=== PATIENT | male | born 1945 | race Caucasian/White ===

== ENCOUNTER 2020-01-08 11:13 | Outpatient (CLI) | payer OTHER, SELFPAY ==
--- NOTE | ~2020-01-08 | XR_ITS ---
EXAMINATION: XR abdomen/kub 1V INDICATION: Calculus of the kidney, history of right-sided stone TECHNIQUE: Supine views of the abdomen were obtained on 2 radiographs. COMPARISON: CT, 07/17/2019 FINDINGS: At least four presumed stones project in the right kidney which measure up to 4 mm. A 3 mm calcification projects in the right pelvis which may be in the distal right ureter. There are phlebol iths of the pelvis. The bowel gas pattern is normal. Cholecystectomy clips are noted. Also noted is a surgical staple line in the right mid abdomen. IMPRESSION: 1. Possible stone in the distal right ureter. 2. Likely right nephrolithiasis. Reviewed, dictated and finalized at location A.
== END 2020-01-08 11:14 | disposition home or self-care (01) ==
LOC: ANHIMG 11:19
PROVIDERS: PCP Family Medicine; Visit Provider Urology
DX: N20.0 Calculus of kidney (principal)
CPT/HCPCS: 74018

== ENCOUNTER 2020-11-07 15:27 | Outpatient (CLI) | payer MEDICARE, OTHER, SELFPAY ==
--- NOTE | ~2020-11-07 | XR_ITS ---
XR chest 2V DATE: 11/07/2020 15:53 INDICATION: Covid diagnosis, September 2020. Difficulty breathing in supine position. History of COPD. TECHNIQUE: PA and lateral views COMPARISON: 09/02/2018 AP and lateral views FINDINGS: Normal heart size. There is aortic calcification and tortuosity. No hilar or mediastinal en largement. No pulmonary infiltrate or consolidation, pleural effusion or pulmonary vascular congestion or pneumo thorax is evident. Diffuse osteopenia. Degenerative spurring of the thoracic spine. Status post cholecystectomy. IMPRESSION: No active cardiopulmonary disease Aortic atherosclerosis Reviewed, dictated and finalized at location A.
== END 2020-11-07 15:28 | disposition home or self-care (01) ==
PROVIDERS: PCP Family Medicine
DX: U07.1 COVID-19 (principal); R05 Cough; R49.9 Unspecified voice and resonance disorder; J44.9 Chronic obstructive pulmonary disease, unspecified; R06.02 Shortness of breath; I70.0 Atherosclerosis of aorta; Z90.49 Acquired absence of other specified parts of digestive tract; M85.88 Other specified disorders of bone density and structure, other site
CPT/HCPCS: 71046

== ENCOUNTER → 2020-11-09 00:19 | Outpatient (CLI) | payer MEDICARE, OTHER, SELFPAY ==
[2020-11-09 17:04] LABS: SARS-CoV-2 RNA PCR Positive
== END ==
PROVIDERS: PCP Family Medicine; Visit Provider Internal Medicine Critical Care Medicine
DX: Z20.822 Contact with and (suspected) exposure to COVID-19 (principal); U07.1 COVID-19
CPT/HCPCS: C9803; U0003; U0005

== ENCOUNTER → 2020-12-03 01:07 | Outpatient (CLI) | payer MEDICARE, OTHER, SELFPAY ==
[2020-12-03 19:37] LABS: SARS-CoV-2 RNA PCR Negative
== END ==
PROVIDERS: PCP Internal Medicine; Visit Provider Internal Medicine Critical Care Medicine
DX: Z01.812 Encounter for preprocedural laboratory examination (principal); Z20.822 Contact with and (suspected) exposure to COVID-19
CPT/HCPCS: C9803; U0003; U0005

== ENCOUNTER 2020-12-07 16:00 | Outpatient (CLI) | payer MEDICARE, OTHER, SELFPAY ==
--- NOTE | 2020-12-26 09:33 | WPDSLEEPSTUD ---
Sleep Study Date of Study: 12/07/20 Ordering Provider: Ken Singer APRN Interpreting Physician: Candis Alvarado MD Sleep Study Type: BiPAP Titration Height: 1.78 m Weight: 88.451 kg Body Mass Index: 27.9 Neck Circumference (inches): 15 [place]: 12 Reason for Sleep Study CLYDE on treatment since 2005, BiPAP started 2009, now on NPPV settings; increased symptoms; needs retitration * Sleep study : July 18, 2005 for nocturnal polysomnogram and July 19, 2005 for MSLT. The overnight study showed an AHI of 18.2. It was recommended for him to return for a CPAP titration. He had an MSLT nevertheless with a mean sleep latency of 11.4 minutes and to REM onset but this is not valid as he had untreated sleep apnea * CPAP titration on August 27, 2005; no optimal pressure demonstrated; alpha wave intrusion. * BiPAP titration January 24, 2010; 16/11 was the optimal pressure. * Current settings show NPPV device with IPAP 25 cm, EPAP 5 cm; pressure support minimum 2, pressure support maximum 8, Bi-Flex on Smart start off; ramp 20 minutes. Ramp start at 5 cm. Sleep History Aldo Reza is a 75 year old man with a history of sleep apnea dating back to 2005, on BiPAP 16/11 since 2009. He has had a new device since then but is still on the same pressures. His current device is over 5 years old. He is compliant with treatment but is devices old so we have not been able to get compliance data. He wakes up during the middle of the night around 2:30 a.m. or as late as 5:00 a.m. feeling panicked when he cannot breathe. He has to get up and complete his night in the recliner. There is a family history with her mother having sleep apnea. He constantly awakens from sleep feeling short of breath. He frequently awakens at night with heartburn, belching or coughing. He occasionally snores. He does not snore loudly enough that others complain about it while he is using BiPAP. He rarely has trouble sleep with a cold. He constantly wakes up gasping for breath at night. He occasionally has breathing problems at night observed by others. He does not sweat excessively night. He occasionally notices his heart pounding or beating irregularly at night. He constantly falls asleep during the day but never falls asleep involuntarily and never falls asleep while driving. He does not have loss of muscle tone with strong emotion he does not have daytime difficulties due to excessive sleepiness. He feels weak on falling asleep or waking. He frequently has vivid dreamlike scenes upon awakening or falling asleep. He has feelings of anxiety upon falling asleep. He does not have nightmares. He rarely remembers his dreams. He constantly has racing thoughts. He occasionally feels sad or depressed. He constantly has anxiety. He does not have muscular tension. He occasionally notices parts of his body jerking. He does not kick at night. He occasionally has crawling and aching feelings in his legs. He does not have any kind of leg pain at night. He does not have morning jaw pain. He does not grind his teeth during sleep. He rarely is bothered by pain during the day. He has never awakened by pain during the night. He rarely wakes up feeling stiff the morning. He does not wake up with sore achy muscles and does not wake up with pain in the neck and spine. He has fatigue, memory problems, depression, bowel disturbances and he takes antacids regularly. He has constant daytime difficulties due to his excessive sleepiness. Normal bedtime 10:30-11 p.m. falling asleep quickly which he attributes to his sleep aids, Neuro calm supplement and melatonin. He wakes up between 4 and 6 times at night. During these awakenings, he will go to the bathroom a few times and take a sip of water for his very dry mouth. These awakenings occurred 12:30 a.m. 5:00 a.m.. He takes naps in the afternoon or evening. A short nap might be refreshing. He is drowsy in the morning. He feels better in
[2020-12-26 10:02] VITALS: BMI 27.9
== END 2020-12-08 07:15 | disposition home or self-care (01) ==
LOC: ANHCSM 12-12 10:09
PROVIDERS: PCP Internal Medicine; Visit Provider Nurse Practitioner Family
DX: G47.33 Obstructive sleep apnea (adult) (pediatric) (principal)
CPT/HCPCS: 95811

== ENCOUNTER 2021-01-09 10:11 | Outpatient (CLI) | payer MEDICARE, OTHER, SELFPAY ==
--- NOTE | ~2021-01-09 | XR_ITS ---
EXAMINATION: XR abdomen/kub 1V EXAM DATE: 01/09/2021 10:24 INDICATION: Calculus of kidney right flank pain. TECHNIQUE: Frontal projection of the upper abdomen, frontal projection lower abdomen/pelvis for inter pretation. Comparison is made to prior examination from 01/08/2020. FINDINGS: There is bowel gas obscuring both renal contours. Possible small right nephrolithiasis iden tified through this. There are cholecystectomy clips. Nonobstructive bowel gas pattern. There is mild to moderate bilateral hip primary osteoarthritis. IMPRESSION: Possible identification small right nephrolithiasis. Reviewed, dictated and finalized at location A.
== END 2021-01-09 10:12 | disposition home or self-care (01) ==
LOC: ANHIMG 10:15
PROVIDERS: PCP Internal Medicine; Visit Provider Urology
DX: N20.0 Calculus of kidney (principal)
CPT/HCPCS: 74018

== ENCOUNTER 2021-01-11 13:03 | Outpatient (CLI) | payer MEDICARE, OTHER, SELFPAY | END 2021-01-11 13:04 | disposition home or self-care (01) | PROVIDERS: PCP Internal Medicine; Visit Provider Nurse Practitioner Family | DX: E61.1 Iron deficiency (principal) | CPT/HCPCS: 36415; 82728 ==

== ENCOUNTER 2021-03-02 12:26 | Outpatient (CLI) | payer MEDICARE, OTHER, SELFPAY ==
--- NOTE | ~2021-03-02 | MR_ITS ---
EXAMINATION: MR brain/brain stem wo/w con EXAM DATE: 03/02/2021 13:52 INDICATION: R41.82 - Altered mental status, unspecified. Memory loss, head pains, symptoms since COVI D in September. TECHNIQUE: Magnetic resonance imaging (MRI) of the brain/brain stem obtained without contrast. Sagit haider T1, axial diffusion, gradient echo (T2*), T1, T2, FLAIR sequences obtained. Patient was then inj ected with 17 cc intravenous Multihance contrast. Axial and coronal postcontrast T1 weighted sequence s obtained. There is no prior study for comparison. FINDINGS: There are no areas of restricted diffusion to suggest acute infarction. There is no acute hemorrhage seen on the T2*, a hemosiderin sensitive sequence. No intraparenchymal brain mass lesion. There is mild periventricular and subcortical T2/FLAIR signal hyperintensity, nonspecific but probab ly related to small vessel ischemic disease (microangiopathy). There is mild prominence of the sulc i and ventricles related to cerebral atrophy. There are no extra-axial collections. Flow voids are seen in the cerebral arteries on the T2-weighted sequences consistent with their expected patency. Patient has had right-sided ocular lens surgery. Soft tissue is unremarkable. IMPRESSION: 1. No acute intracranial findings. 2. Chronic age related findings. Reviewed, dictated and finalized at location B.
[2021-03-02 13:19] LABS: Estimated Glomerular Filt Rate > 60
== END 2021-03-02 12:27 | disposition home or self-care (01) ==
PROVIDERS: PCP Internal Medicine; Visit Provider Internal Medicine
DX: R41.82 Altered mental status, unspecified (principal)
CPT/HCPCS: 70553; A9577

== ENCOUNTER 2021-08-14 15:56 | Outpatient (CLI) | payer MEDICARE, OTHER, SELFPAY ==
--- NOTE | ~2021-08-14 | XR_ITS ---
EXAMINATION: XR abdomen/kub 1V DATE: 08/14/2021 16:17 INDICATION: Kidney stones. Screening for prostate cancer. TECHNIQUE: A supine view of the abdomen on 2 radiographs was obtained. COMPARISON: 01/09/2021 FINDINGS: Multiple gas-filled but not frankly dilated loops of bowel throughout the abdomen. Suggestion of a fe w small stones at the right kidney however assessment is limited by the superimposed bowel gas patter n. Cholecystectomy clips in right upper quadrant. Mild bilateral hip and sacroiliac osteoarthritis. IMPRESSION: 1. Suggestion of a few small right renal stones however these are superimposed over multiple loops of gas-filled bowel which limits evaluation. 2. Nonspecific bowel gas pattern with large amount of gas scattered throughout nondilated bowel which could represent an ileus. Reviewed, dictated and finalized at location A. L INTERN
== END 2021-08-14 15:57 | disposition home or self-care (01) ==
PROVIDERS: PCP Family Medicine; Visit Provider Urology
DX: Z12.5 Encounter for screening for malignant neoplasm of prostate (principal)
CPT/HCPCS: 74018

== ENCOUNTER 2021-09-28 11:13 | Outpatient (CLI) | payer MEDICARE, OTHER, SELFPAY | END 2021-09-28 11:14 | disposition home or self-care (01) | PROVIDERS: PCP Family Medicine; Visit Provider Physician Assistant | DX: D50.9 Iron deficiency anemia, unspecified (principal) | CPT/HCPCS: 36415; 82728 ==

== ENCOUNTER 2022-01-05 16:45 | Outpatient (CLI) | payer MEDICARE, OTHER, SELFPAY | END 2022-01-05 16:46 | disposition home or self-care (01) | LOC: ANHLAB 16:46 | PROVIDERS: PCP Family Medicine; Visit Provider Physician Assistant | DX: E61.1 Iron deficiency (principal) | CPT/HCPCS: 36415; 82728 ==

== ENCOUNTER 2022-04-02 16:37 | Outpatient (CLI) | payer MEDICARE, OTHER, SELFPAY | END 2022-04-02 16:38 | disposition home or self-care (01) | LOC: ANHLAB 16:39 | PROVIDERS: PCP Family Medicine; Visit Provider Physician Assistant | DX: Z87.19 Personal history of other diseases of the digestive system (principal); Z98.890 Other specified postprocedural states | CPT/HCPCS: 36415; 82728 ==

== ENCOUNTER 2022-07-13 11:07 | Outpatient (CLI) | payer MEDICARE, OTHER, SELFPAY ==
--- NOTE | ~2022-07-13 | XR_ITS ---
EXAMINATION: XR abdomen/kub 1V INDICATION: Screening for prostate cancer, kidney stones TECHNIQUE: Supine views of the abdomen were obtained on 2 radiographs. COMPARISON: 08/14/2021 FINDINGS: Bone alignment is normal. There is mild osteoarthritis of the hips. Surgical clips in the r ight upper quadrant are likely from prior cholecystectomy. Phleboliths are noted in the pelvis. IMPRESSION: 1. Mild osteoarthritis of the hips. Reviewed, dictated and finalized at location B. GATION SUPPORT ANALYST
== END 2022-07-13 11:08 | disposition home or self-care (01) ==
PROVIDERS: PCP Family Medicine; Visit Provider Physician Assistant
DX: D64.9 Anemia, unspecified (principal); Z12.5 Encounter for screening for malignant neoplasm of prostate; M16.0 Bilateral primary osteoarthritis of hip
CPT/HCPCS: 36415; 74018; 82728

== ENCOUNTER 2023-01-11 11:40 | Outpatient (CLI) | payer MEDICARE, OTHER, SELFPAY ==
--- NOTE | ~2023-01-11 | XR_ITS ---
Clinical Indication: COPD PA and lateral views of the chest: Comparison: 11/07/2020 Findings: The lungs are clear, without evidence of focal consolidation or pleural effusion. Cardiome diastinal silhouette is within normal limits. Bones and soft tissues are unremarkable. Impression: Clear lungs. Reviewed, dictated and finalized at location . Impression: Clear lungs.
== END 2023-01-11 11:41 | disposition home or self-care (01) ==
PROVIDERS: PCP Family Medicine; Visit Provider Physician Assistant
DX: J44.9 Chronic obstructive pulmonary disease, unspecified (principal); R06.09 Other forms of dyspnea
CPT/HCPCS: 71046

== ENCOUNTER 2023-12-07 11:45 | Emergency (ER) | payer MEDICARE, OTHER, SELFPAY ==
--- NOTE | ~2023-12-07 | XR_ITS ---
XR chest 2V DATE: 12/07/2023 12:34 INDICATION: Chest pain, rib pain, left upper quadrant abdominal pain TECHNIQUE: AP and lateral views COMPARISON: 01/11/2023 PA and lateral chest FINDINGS: Heart size appears within normal range. There is aortic calcification and mild tortuosity. No hilar or mediastinal enlargement is evident. No pulmonary infiltrate or consolidation, pleural effusion or pulmonary mass or congestion or pneumot horax. Chronic mild elevation of left diaphragm. Osteopenia. Diffuse idiopathic skeletal hyperostosis of the thoracic spine. IMPRESSION: No active disease or significant change since 01/11/2023 Reviewed, dictated and finalized at location A.
[2023-12-07 11:55] VITALS: BP 119/55; PULSE 65; RESP 16; TEMP 36.3; O2SAT 99
[2023-12-07 12:03] VITALS: RESP 18
--- NOTE | 2023-12-07 12:09 | ECG_ITS ---
[facility] [address] Test Date: 2023-12-07 Pat Name: Aldo Reza Department: Room: Gender: M Guard Range: : 1945 Requested By: Figueroa Almazan Order Number: [id number] Cj MD: Frederick Bonds M.D. Measurements Intervals [place] Rate: 54 P: 35 VT: 132 QRS: 47 QRSD: 96 T: 73 QT: 378 QTc: 360 Interpretive Statements SINUS BRADYCARDIA OTHERWISE WITHIN NORMAL LIMITS No previous ECG available for comparison Electronically Signed On 12-08-2023 07:43:48 CDT by Frederick Bonds M.D.
[2023-12-07 12:28] LABS: Basophils Percent Auto 0.8 % (0.2-1.2); Eosinophils Absolute Auto 0.1 K/mm3 (0-0.3); Eosinophils Percent Auto 1.7 % (0-4.4); Hemoglobin 13.2 g/dL (14.0-18.0); Immature Granulocyte Absolute 0.01 K/mm3 (0.00-0.031); Immature Granulocyte Percent A 0.2 % (0-0.5); Lymphocytes Absolute Auto 1.23 K/mm3 (0.9-3.2); Lymphocytes Percent Auto 23.4 % (18.3-44.2); Mean Corpuscular Hemoglobin 31.2 pg (26-34); Mean Corpuscular Volume 94.6 fl (80-100); Mean Platelet Volume 8.9 fl (7.4-10.4); Monocytes Absolute Auto 0.5 K/mm3 (0.1-0.6); Monocytes Percent Auto 10.1 % (2.6-8.5); Neutrophils Absolute Auto 3.4 K/mm3 (1.3-6.7); Neutrophils Percent Auto 63.8 % (45.5-73.1); Platelet Count Result 191 k/mm3 (150-375); Red Blood Count 4.23 M/mm3 (4.6-6.20); Red Cell Distribution Width 13.5 % (11.5-14.5); White Blood Count 5.3 K/mm3 (4.5-10.0)
[2023-12-07 12:38] LABS: Prothrombin Time 13.3 Seconds (11.1-14.7)
[2023-12-07 12:39] LABS: Partial Thromboplastin Time 25.4 Seconds (22.3-36.8)
[2023-12-07 12:40] LABS: Alanine Aminotransferase 78 U/L (6-50); Albumin Level 3.9 g/dL (3.5-5.1); Alkaline Phosphatase 72 U/L (38-126); Anion Gap 0 mmol/L (4-12); Aspartate Amino Transferase 39 U/L (17-59); Bilirubin,Total 1.3 mg/dL (0.2-1.3); Blood Urea Nitrogen 20 mg/dL (9-20); Calcium 9.3 mg/dL (8.4-10.2); Carbon Dioxide 33 mmol/L (22-30); Chloride 104 mmol/L (98-107); Estimated CRCL calculation 68 ml/min; Estimated Glomerular Filt Rate > 60; Glucose 96 mg/dL (65-110); Lipase 94 U/L (23-300); Potassium 4.1 mmol/L (3.4-5.0); Sodium 137 mmol/L (137-145)
--- NOTE | 2023-12-07 13:01 | ED.GENADULT ---
HPI - General Adult General Chief complaint: Unspecified Stated complaint: rib pain Time Seen by Provider: 12/07/23 11:57 History of Present Illness HPI narrative: this is a 78-year-old male with dementia presenting for rib pain. The patient is a poor historian and cannot relay his symptoms very well. His states that he has been having pain over his left costal cartilage at approx rib 6-9. pain has been going on for several months. It happens 3-4 times per week and resolved on its own without intervention. It is not associated with diaphoresis exertion, vomiting, radiation or any other problems. Patient denies any falls. He denies pain at this time. The wants make sure he is not having a heart attack. Related Data Home Medications Medication Instructions Recorded Confirmed aspirin 81 mg chewable tablet 81 mg PO DAILY 06/14/20 08/14/23 ascorbate calcium (vitamin C) 500 500 mg PO DAILY 11/11/20 08/14/23 mg tablet calcium carbonate ([place]) 168 mg PO TID 11/11/20 08/14/23 cholecalciferol (vitamin D3) 10 10 mcg PO DAILY 11/11/20 08/14/23 mcg (400 unit) capsule krill oil 500 mg capsule mg PO 11/11/20 08/14/23 multivitamin 1 tablet PO DAILY 11/11/20 08/14/23 omega-3 fatty acids 500 mg capsule 500 mg PO DAILY 11/11/20 08/14/23 turmeric (bulk) 95 % powder ea miscellaneous 11/11/20 08/14/23 (Curcumin) vitamin K2 45 mcg capsule 45 mcg PO DAILY 11/11/20 08/14/23 zinc acetate 25 mg (zinc) capsule 25 mg PO DAILY 11/11/20 08/14/23 (Galzin) docusate sodium 100 mg capsule 100 mg PO DAILY 02/21/21 08/14/23 (Colace) Allergies Allergy/AdvReac Type Severity Reaction Status Date / Time levofloxacin AdvReac Mild joint pain Verified 08/14/23 11:01 [facility] Past Medical History Medical History Congestive heart failure COPD (chronic obstructive pulmonary disease) Heartburn History of blood clots History of kidney stones Hx of nephrolithotomy with removal of calculi Low ferritin level Nephrolithiasis 13 kidney stones Obstructive sleep apnea Surgical History Surgical History Cataract extraction status H/O inguinal hernia repair LIH History of cholecystectomy History of laparoscopic appendectomy Family History Family History Father Family history of renal failure Family history of heart disease in male family member before age 55 Patient's father is Hypertension Diabetes mellitus Mother Family history of congestive heart failure Patient's mother is Hypertension Sibling Hypertension Family history of Alzheimer's disease Family history of emphysema Patient's brother is Grandparent Asthma Other Family history of cardiovascular disease Social History Social History Smoking status: Never smoker Alcohol intake: never Living arrangements: with family Occupation/Education: retired Exam Narrative: APPEARANCE: No apparent distress. Head: atraumatic. EYES: EOMI, NOSE: Atraumatic NECK: Trachea midline RESPIRATORY: No increased rate of breathing , clear to auscultation CARDIOVASCULAR: RRR, pitting edema lower extremities which is chronic per the patient's ABDOMINAL: Non-distended soft nontender MUSCULOSKELETAl: No obvious deformities no tenderness appreciated over the anterior chest and abdomen NEURO: Alert. Moving 4/4 extremities SKIN:: Warm, dry. Normal color PSYCHIATRIC: Normal affect Course Vital Signs Vital signs: Vital Signs Temperature 97.4 F L 12/07/23 11:55 Pulse Rate 65 12/07/23 11:55 Respiratory Rate 16 12/07/23 11:55 Blood Pressure 119/55 L 12/07/23 11:55 Pulse Oximetry 99 12/07/23 11:55 Temperature 97.4 F L 12/07/23 11:55 Pulse Rate 59 L
[2023-12-07 13:06] LABS: Troponin I < 0.012 ng/mL (0.000-0.034)
[2023-12-07 13:35] VITALS: BP 112/58; PULSE 60; RESP 16; O2SAT 97
[2023-12-07 14:44] VITALS: BP 133/76; PULSE 59; O2SAT 100
--- NOTE | 2023-12-07 15:00 | ECG_ITS ---
[facility] [address] Test Date: 2023-12-07 Pat Name: Aldo Reza Department: Room: Gender: Ripshear Operator: : 1945 Requested By: Figueroa Almazan Order Number: [id number] Cj MD: Frederick Bonds M.D. Measurements Intervals [place] Rate: 62 P: 59 NM: 148 QRS: 56 QRSD: 92 T: 79 QT: 359 QTc: 367 Interpretive Statements SINUS RHYTHM WITHIN NORMAL LIMITS Compared to ECG 12/07/2023 12:15:14 NO SIGNIFICANT CHANGE Electronically Signed On 12-08-2023 07:46:30 CDT by Frederick Bonds M.D.
[2023-12-07 15:54] LABS: Troponin I < 0.012 ng/mL (0.000-0.034)
[2023-12-07 16:36] VITALS: BP 125/78; PULSE 60; RESP 18; O2SAT 97
== END 2023-12-07 16:37 | disposition home or self-care (01) ==
PROVIDERS: Emergency Provider Emergency Medicine; PCP Family Medicine
DX: R07.81 Pleurodynia (principal); I50.9 Heart failure, unspecified; J44.9 Chronic obstructive pulmonary disease, unspecified; Z86.718 Personal history of other venous thrombosis and embolism; Z87.442 Personal history of urinary calculi; G47.30 Sleep apnea, unspecified
CPT/HCPCS: 36415; 71046; 80053; 83690; 84484; 85025; 85610; 85730; 93005; 99284

== ENCOUNTER 2024-10-15 15:40 | Outpatient (CLI) | payer MEDICARE, OTHER, SELFPAY ==
--- NOTE | ~2024-10-15 | CT_ITS ---
Non-contrast CT scan of the Abdomen and Pelvis Clinical indication: Left flank pain Technique: 2.5 mm axial scans were obtained through the abdomen and pelvis without intravenous or or al contrast. Dose reduction technique was used on this scan by utilizing automated exposure control a nd iterative reconstruction technique. The dose-length product (DLP) was 318.84 mGy-cm. Findings: Images through the lung bases reveal no abnormalities. Multiple small nonobstructing right renal stones are present. No definite left renal stone. No ureter al stone or definite hydronephrosis on either side. Questionable micronodular contour of liver. The spleen, pancreas, and adrenals appear normal. Cholecy stectomy clips are present. There are atherosclerotic calcifications of the aorta. . There is no evidence of bowel obstruction. Images through the pelvis were performed. There is no evidence of ascites or lymphadenopathy. Urinary bladder unremarkable. Prostate gland is enlarged. Impression: Nonobstructing right nephrolithiasis. No ureteral stone or hydronephrosis on either side. Enlarged prostate gland. Questionable mild cirrhotic change of the liver. Reviewed, dictated and finalized at location . Impression: Nonobstructing right nephrolithiasis. No ureteral stone or hydronephrosis on ei ther side. Enlarged prostate gland. Questionable mild cirrhotic change of the liver.
--- OUTSIDE RECORDS SUMMARY | 2024-10-15 15:45 | XMS_ITS | Clinical Summary ---
Author Organization [facility] Address [address] [place] [address] Phone Care Team Providers Care Refrigerated Cargo Clerk Name Role Phone Unavailable Primary Care Provider Unavailabl e Social History Tobacco Use Types Packs/Day Years Used Date Smoking Tobacco: Never Assessed Sex and Gender Information Value Date Recorded Sex Assigned at Not on file Legal Sex Male 10:08 PM CDT Gender Identity Not on file Sexual Orientation Not on file Plan of Treatment Not on file
--- OUTSIDE RECORDS SUMMARY | 2024-10-15 15:45 | XMS_ITS | Encounter Summary ---
Author Organization [facility] Facility Care Team Providers Care Wafer Fabrication Technician Name Role Phone Eren Bojorquez MD Primary Care Provider [phone] Yovana GarciaW Unavailable [phone] Nani Colin RN Unavailable [phone] Encounter Details Date Type Department Care Team (Latest Contact Info) Description 07/30/2018 Orders Only [facility] CLINCONV ProviderRicardo MD [address] [place] [id number] Social History Tobacco Use Types Packs/Day Years Used Date Smoking Tobacco: Never Smokeless Tobacco: Never Alcohol Use Standard Drinks/Week Comments No 0 (1 standard drink = 0.6 oz pur e alcohol) Sex and Gender Information Value Date Recorded Sex Assigned at Not on file Legal Sex Male 1:27 PM JANITORIAL MANAGER Gender Identity Not on file Sexual Orientation Not on file documented as of this encounter Plan of Treatment Not on file documented as of this encounter Procedures Procedure Name Priority Date/Time Associated Diagnosis Comments PROCEDURE - RESULT 07/30/2018 12 :00 AM JANITORIAL MANAGER documented in this encounter Results * PROCEDURE - RESULT (07/30/2018 12:00 AM JANITORIAL MANAGER) Narrative 07/30/2018 12:00 AM JANITORIAL MANAGER Ordered by an unspecified provider. Historical Provider Final Res ult documented in this encounter Visit Diagnoses Not on filedocumented in this encounter Additional Health Concerns Infection Onset Date Last Indicated Resolved Time COVID: Suspected 09/16/2024 09/16/2024 09/16/2024 11:06 AM CDT documented as of this encounter Care Teams Wafer Fabrication Technician Relationship Specialty Start Date End Date Eren Bojorquez MD PCP - General Family Medicine 12/17/18 Yovana Garcia, MIREYA [address] [place] [address] System Operation Superintendent 02/13/24 02/20/24 Nani Colin RN [address] [place] [address] [place], [place] [address], [place] [address] Director Government 02/13/24 07/06/24 documented as of this encounter
--- OUTSIDE RECORDS SUMMARY | 2024-10-15 15:45 | XMS_ITS | Encounter Summary ---
Author Organization [facility] Facility Care Team Providers Care Funeral Car Driver Name Role Phone Eren Bojorquez MD Primary Care Provider [phone] Yovana GarciaW Unavailable [phone] Nani Colin RN Unavailable [phone] Encounter Details Date Type Department Care Team (Latest Contact Info) Description 09/02/2018 Orders Only [facility] CLINCONV ProviderRicardo MD [address] [place] [address] Social History Tobacco Use Types Packs/Day Years Used Date Smoking Tobacco: Never Smokeless Tobacco: Never Alcohol Use Standard Drinks/Week Comments No 0 (1 standard drink = 0.6 oz pur e alcohol) Sex and Gender Information Value Date Recorded Sex Assigned at Not on file Legal Sex Male 1:27 PM LICENSED MASS REAL ESTATE APPRAISER Gender Identity Not on file Sexual Orientation Not on file documented as of this encounter Plan of Treatment Not on file documented as of this encounter Procedures Procedure Name Priority Date/Time Associated Diagnosis Comments SCAN - LABS 09/03/2018 12:00 AM LICENSED MASS REAL ESTATE APPRAISER documented in this encounter Results * SCAN - LABS (09/03/2018 12:00 AM LICENSED MASS REAL ESTATE APPRAISER) Narrative 09/03/2018 12:00 AM LICENSED MASS REAL ESTATE APPRAISER Ordered by an unspecified provider. Historical Provider Final Res ult documented in this encounter Visit Diagnoses Not on filedocumented in this encounter Additional Health Concerns Infection Onset Date Last Indicated Resolved Time COVID: Suspected 09/16/2024 09/16/2024 09/16/2024 11:06 AM CDT documented as of this encounter Care Teams Funeral Car Driver Relationship Specialty Start Date End Date Eren Bojorquez MD PCP - General Family Medicine 12/17/18 Yovana Garcia, MIREYA [address] [place] [address] Vp Corporate Development 02/13/24 02/20/24 Nani Colin RN [address] [place] [address] [place], [place] [address] [address] Robotics Specialist 02/13/24 07/06/24 documented as of this encounter
--- OUTSIDE RECORDS SUMMARY | 2024-10-15 15:45 | XMS_ITS | Clinical Summary ---
Author Organization [facility] [address] Address [address] [place] [address] Care Team Providers Care Acetone Recovery Worker Name Role Phone Eren Bojorquez MD Primary Care Provider [phone] Allergies Active Allergy Reactions Criticality Noted Date Comments Levofloxacin Joint pain Low Medications oregano oil 1,500 mg capsule 1,500 mg. 0 0 02/02/20 15 Active turmeric, bulk, (CURCUMIN) 95 % powder 95 %. 0 0 02/02/20 15 Active aspirin 81 mg tablet Take 1 tablet (81 mg total) by mouth daily Active ascorbic acid (VITAMIN C) 100 mg tablet Rx: Vitamin C Ac tive [id number] pa-dpa-fish oil 1,050-1,200 mg capsule Rx: Lanexa 3 Active multivit with min-folic acid 200 mcg tablet,chewab le Rx: Multivitamin Adult - Tablet Active magnesium oxide 200 mg magnesium tablet,chewab le Rx: Magnesium Active docusate sodium (COLACE) 100 mg capsuleIndica tions:constip ation Take 1 capsule (100 mg total) by mouth 2 (two) times a day Active cholecalcifer ol (VITAMIN D-3) 5,000 unit capsule Take 1 capsule (5,000 Units total) by mouth daily Active albuterol 2.5 mg /3 mL (0.083 %) nebulizer solution Active albuterol HFA (PROVENTIL HFA,VENTOLIN HFA,PROAIR HFA) 90 mcg/actuation inhaler Active hydroCHLOROth iazide (MICROZIDE) 12.5 mg capsule Take 1 capsule (12.5 mg total) by mouth daily 90 capsule 3 01/16/20 24 Active meloxicam (MOBIC) 7.5 mg tabletIndicat ions:Localize d swelling on left hand Take 1 tablet (7.5 mg total) by mouth daily for 15 days 15 tablet 09/17/19 25 Active traZODone (DESYREL) 50 mg tablet TAKE ONE TO ONE AND ONE-HALF TABLETS BY MOUTH AT BEDTIME NEEDED FOR INSOMNIA 135 tablet 1 09/18/19 25 Active traZODone (DESYREL) 50 mg tablet TAKE ONE TO ONE AND ONE-HALF TABLETS BY MOUTH AT BEDTIME NEEDED FOR INSOMNIA 135 tablet 1 03/11/20 24 025 Discontinued carbidopa-lev odopa (SINEMET) 25-100 mg per tabletIndicat ions:Parkinso nism Take 2 tablets by mouth 3 (three) times a day Start with a very slow titration of 1/2 tablet three times per day for 2 weeks, then increase by 1/2 tab at each dose every 2 weeks until taking 2 tabs TID. 180 tablet 11 04/13/20 24 025 Discontinued(T herapy completed) gabapentin (NEURONTIN) 100 mg capsule Take 1 capsule (100 mg total) by mouth nightly 30 capsule 08/12/19 25 025 Discontinued(T herapy completed) azithromycin (ZITHROMAX) 250 mg tabletIndicat ions:Acute cough Take 2 tabs (500 mg) by mouth today, than 1 tab (250 mg) daily for 4 days. 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 Advised can stop if s/e. Parkinson's disease without dyskinesia or fluctuating manifestations 01/08/2024 Assessment & Plan (08/12/2024 12:09 PM LATCHER): Not at goal Encourage to schedule follow up with movement clinic Strongly encourage to start on Sinemet as prescribed Assessment & Plan (04/13/2024 1:10 PM CDT): He had stage 3 parkinsonism characterized by relatively symmetric bradykinesia, a history of resting tremor (not seen on exam today and infrequent per report), mild rigidity, postural instability as well as, hypophonia, hypomimia and cognitive impairment with visual hallucinations within the first 2 - 3 years of diagnosis and early falling. 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 He had no eye movement abnormalities or autonomic symptoms. He was most bothered right now by motor symptoms of bradykinesia and rigidity, mobility. He and his family report that they are less bothered by visual hallucinations which have been mild thus far though suspected tactile hallucination of needing to have a bowel movement were more bothersome to his day-to-day. He has recently begun quetiapine 12.5 mg and now titrated to 25 mg nightly. In past week perhaps no hallucinations though AM grogginess today at higher dose last night. He is on trazodone 25 mg nightly and if AM grogginess persist then he can stop this rather than waiting a week as previously planned. As hallucinations are not bothersome they wonder if they should continue quetiapine. We discussed continue current dosing while monitoring VH and suspected tactile hallucinations as well as mobility and updating us in 1 week. No need to continue to titrate further if non-bothersome or if experiencing side effects. Should he continue to feel groggy in AM or think mobility worse at higher dosing, then we can reduce back to 12.5 mg nightly and remain off trazodone (had been used for sleep) as sleep has been good and quetiapine beneficial for VH. In future, could alternatively consider pimavanserin. His MDS-UPDRS is worse today than before, will need to monitor this closely at next visit and by history with patient update if this is related to quetiapine use or not. We discussed starting carbidopa/levodopa for his motor symptoms. We discussed that carbidopa/levodopa may make sedation and hallucinations worse. I would start with a very slow titration of 1/2 tablet TID x 2 weeks and increase by 1/2 tab at each dose every 2 weeks until taking 2 tabs TID. A prescription has been placed locally but they will consider and discuss as a family and let us know should he decide to pursue this. NPT today demonstrated cognitive impairment on MOCA and MMSE and by history he has dementia as he has now begun forgetting how to get dressed or toilet at times and unable to do so independently. B12 and TSH recently checked and wnkl (B12 1853 and TSH 1.81). Recommendations: Update us in 1 week regarding hallucinations and sensations of needing a bowel movement - can continue quetiapine 25 mg nightly and no need to increase further if hallucinations are improved - we may consider reducing this in the future if hallucinations remain stable and he is bothered by sedation or AM grogginess despite stopping trazodone, or worsening mobility in timeframe of starting quetiapine Recommended cautious trial of carbidopa-levodopa 1/2 tab TID with titration by 1/2 tab each dose every 2 weeks until reaching 2 tabs TID while closely monitoring psychosis and for additional side effects - they will consider and discuss as a family Increase water intake and if needed trial OTC miralax for constipation Continue PT and OT - new referrals placed for local use Can trial exercises classes on [employer] channel as tolerated NPT today Follow-up in 4 months Assessment & Plan (02/11/2024 12:46 PM CDT): Progressive, worsening Continue working with PT/OT Home health and ACO referrals Keep f/u with [facility] clinic Assessment & Plan (01/08/2024 11:52 AM CDT): He had stage 3 parkinsonism characterized by relatively symmetric bradykinesia, a history of resting tremor (not seen on exam today), mild rigidity, postural instability as well as, hypophonia, hypomimia and cognitive impairment with visual hallucinations within the first 2 - 3 years of diagnosis and early falling. 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 He had no eye movement abnormalities or autonomic symptoms. He was most bothered right now by a likely tactile hallucination of wanting to have a bowel movement as well as severe slowness of movement and cognitive impairment. We decided to start with a quetiapine titration that will start when they return from a cruise on February 04. Should he do well with it he may discontinue trazodone. He will see our RECRE[facility] C[facility] DIRECTOR in 3 months and at that time will consider starting carbidopa/levodopa. We discussed that carbidopa/levodopa may make sedation and hallucinations worse. I would start with a very slow titration of 1/2 tablet TID x 2 weeks and increase by 1/2 tab at each dose every 2 weeks until taking 2 tabs TID. He would benefit from PT but may not have the ability to remember what he has learned. He needs an NPT and video on his return visit. He had a normal B12 and TSH at the onset of his illness. We could check these again I let them know that the supplements he was taking were not necessary in Parkinson disease. He sees a signal maintainer helper who is attempting some heavy metal chelation though I do not have labs that show he has high heavy metals. Lewy body dementia with behavioral disturbance 0 01/08/2024 Assessment & Plan (02/11/2024 12:46 PM CDT): Progressive, worsening Continue working with PT/OT Home health and ACO referrals Keep f/u with [facility] clinic Weakness 09/09/2023 Assessment & Plan (02/11/2024 12:46 PM CDT): Progressive, worsening Continue working with PT/OT Home health and ACO referrals Keep f/u with [facility] clinic Assessment & Plan (11/07/2023 12:19 PM CDT): Progressive Denies much decline since seen in August Discussed possible starting on Aricept or Namenda to help. would like to discuss with family first. Discussed memory and tremor may be related to dementia or coule potentially be Parkinsonism tremor. Hard to determine since not present during visit. Discussed starting on medications for Parkinsons but would prefer to wait until seen by neurology Referral to neurology Assessment & Plan (09/09/2023 11:39 AM CDT): Worsening, progressive PT/OT referral to [facility] in [place] Advise to maintain independence and continue moving to prevent further loss. Can use OTC Tylenol or Tylenol arthritis BID for hip pain which may help with sleep and mobility Dystrophia unguium 02/27/2023 Non-recurrent unilateral ing uinal hernia without obstruction or gangrene 11/29/2021 Memory loss 08/09/2021 Assessment & Plan (11/07/2023 12:21 PM CDT): Progressive Denies much decline since seen in August Forgot grandsons name Discussed possible starting on Aricept or Namenda to help. would like to discuss with family first. Discussed memory and tremor may be related to dementia or coule potentially be Parkinsonism tremor. Hard to determine since not present during visit. Discussed starting on medications for Parkinsons but would prefer to wait until seen by neurology Referral to neurology Assessment & Plan (09/09/2023 11:38 AM CDT): Worsening, progressive Discussed 's concerns. Advised could give 1 tab of trazodone during upcoming trip if needed. Redirect. Maintain independence for as long as possible. High protein meals, push fluids. Mixed hyperlipidemia 02/04/2019 Assessment & Plan (08/12/2024 12:08 PM LATCHER): Stable Lab Results Component Value Date CHOL 222 (H) 03/25/2024 CHOL 252 (H) 08/09/2021 CHOL 228 (H) 11/30/2019 POCCHOL 234 02/27/2018 Lab Results Component Value Date HDL 70 03/25/2024 HDL 75 08/09/2021 HDL 76 11/30/2019 POCHDL 70 02/27/2018 Lab Results Component Value Date LDLCALC 156 (H) 08/09/2021 LDL 138 (H) 03/25/2024 LDL 138 (H) 11/30/2019 LDL 142 (H) 12/17/2018 POCLDL 155 02/27/2018 SCRLDL 139 (A) 11/11/2020 Lab Results Component Value Date TRIG 57 03/25/2024 TRIG 107 08/09/2021 TRIG 45 11/30/2019 POCTRIG 48 02/27/2018 Lab Results Component Value Date POCCHDLR 3.4 02/27/2018 Lab Results Component Value Date POCNONHDL 165 02/27/2018 Repeat labs prior to next visit Diet managed Assessment & Plan (02/11/2024 12:45 PM CDT): Stable Lab Results Component Value Date CHOL 252 (H) 08/09/2021 CHOL 228 (H) 11/30/2019 CHOL 234 (H) 12/17/2018 POCCHOL 234 02/27/2018 Lab Results Component Value Date HDL 75 08/09/2021 HDL 76 11/30/2019 HDL 77 12/17/2018 POCHDL 70 02/27/2018 Lab Results Component Value Date LDLCALC 156 (H) 08/09/2021 LDL 138 (H) 11/30/2019 LDL 142 (H) 12/17/2018 LDL 151 (H) 12/06/2017 POCLDL 155 02/27/2018 SCRLDL 139 (A) 11/11/2020 Lab Results Component Value Date TRIG 107 08/09/2021 TRIG 45 11/30/2019 TRIG 56 12/17/2018 POCTRIG 48 02/27/2018 Lab Results Component Value Date POCCHDLR 3.4 02/27/2018 Lab Results Component Value Date POCNONHDL 165 02/27/2018 Lab Results Component Value Date POCCHLPL 234 02/27/2018 Check labs Idiopathic esophageal varices without bleeding 0 02/04/2019 Mucocele of appendix 01/14/2019 Chronic fatigue 12/05/2017 Assessment & Plan (02/11/2024 12:45 PM CDT): Progressive worsening Decrease trazodone and taper off while starting Seroquel Discussed possible s/e with pt and Check labs Continue PT/OT services Home health and ACO referrals Assessment & Plan (11/07/2023 12:21 PM CDT): Worsened Having more waking periods at night. Up frequently to bathroom Has had family coming to help during the nights. Currently taking 50mg trazodone with some relief. 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 Grider 01/2016 Obstructive sleep apnea syndrome 02/01/2015 Overview (10/04/2016): CLYDE on CPAP Cardiomyopathy 02/01/2015 Assessment & Plan (02/11/2024 12:44 PM CDT): Chronic Keep appt with palm gatherer on 05/21/24 Continue ASA 81mg, HCTZ 12.5mg Labs ordered Chronic diastolic heart failure 02/01/2015 Assessment & Plan (08/12/2024 12:08 PM LATCHER): Stable edema, asymptomatic otherwise Continue HCTZ 12.5mg daily Continue compression socks Check labs prior to next visit Edema 02/01/2015 Overview (10/05/2016): Edema Chronic obstructive pulmonary disease 02/01/2015 Overview (10/05/2016): COPD (chronic obstructive pulmonary disease) Pulmonary hypertension 02/01/2015 Overview (10/05/2016): Pulmonary HTN Slow transit constipation Resolved Problems Problem Noted Date Diagnosed Date Resolved Date Ingrowing toenail 03/28/2023 09/16/2024 Abdominal pain, LUQ 11/29/2021 02/11/20 24 Paronychia of toe of right foot 05/15/2021 09/16/2024 Pain in toe 12/29/2020 09/16/2024 Acute left-sided low back pa in without sciatica 06/09/2020 08/12/2024 H/O hernia repair 01/14/2019 09/16/2024 Kidney stones 01/14/2019 09/16/2024 Cataract 07/30/2018 09/16/2024 Adiposity 02/01/2015 01/14/2019 Overview (10/05/2016): Obesity Dyspnea on exertion 02/01/2015 01/15/20 19 Overview (10/05/2016): ROBBINS (dyspnea on exertion) Encounters Date Type Department Care Team Description 09/16/2024 10:30 AM CDT Office Visit [facility] at [address] [place] [phone] Arabella España PA Acute cough (Primary Dx); Localized swelling on left hand 08/12/2024 11:30 AM LATCHER Telemedicine [facility] at [address] [place] [address] Jacquelyn Rodriguez NP 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) (Primary Dx); Parkinson's disease without dyskinesia or fluctuating manifestations (HCC); Chronic diastolic heart failure (HCC); Encounter for hepatitis C screening test for low risk patient; Need for hepatitis B screening test; Mixed hyperlipidemia; Neuropathy 08/03/2024 11:15 AM LATCHER Office Visit [facility] [address] [place] [address] Frederick Bonds MD Dilated cardiomyopathy (HCC) (Primary Dx) from Last 3 Months Immunizations Immunization Administration Dates Next Due Influenza, Trivalent, High D ose, Split, Preservative Free, Intramuscular 04/09/2019 Influenza, Unspecified 08/12/2024(Deferr ed: Patient Refused),09/09/2023(Deferred: Patient Refused),03/31/2022,08/09/2021(Deferre d: Patient Refused),07/01/2021(Deferred: Patient Refused),07/01/2020(Deferred: Patient Refused),07/01/2020(Deferred: Patient Refused) Pneumococcal Conjugate PCV 13 06/16/2015 Pneumococcal Polysaccharide PPV23 07/16/2012 ZOSTER LIVE 07/16/2012 ZOSTER Recombinant 06/28/2020,04/14/2020 Surgical History Surgery Date Site/Laterality Comments HERNIA REPAIR 07/01/1999 - 06/30/2000 CHOLECYSTECTOMY 07/01/2013 - 06/30/2014 APPENDECTOMY CATARACT EXTRACTION 07/01/2018 - 06/30/2019 SKIN CANCER EXCISION 10/20/2022 Right 09/2023 removal from nose Medical History Medical History Date Comments COPD (chronic obstructive pulmonary disease) (HC C) Sleep apnea Kidney stones x13 History of hernia repair Diastolic dysfunction Non-ischemic cardiomyopathy (HCC) Lewy body dementia (HCC) 2023 Family History Medical History Relation Name Comments Alzheimer's disease Brother 2 Alzheime r's disease; Kidney disease Father Renal disease ; Heart failure Mother Congestive hea rt failure; Heart failure Sister 1 Congestive hea rt failure; COPD Sister 2 COPD; Relation Name Status Comments Brother 1 (Age 75) Brother 2 Father (Age 85) Mother (Age 84) Sister 1 Sister 2 Social History Tobacco Use Types Packs/Day Years Used Date Smoking Tobacco: Never Smokeless Tobacco: Never Tobacco Cessation:Counseling Given: Not Answered Alcohol Use Standard Drinks/Week Comments No 0 (1 standard drink = 0.6 oz pur e alcohol) [facility] Utilities Answer Date Recorded In the past 12 months has [employer] electric, gas, oil, or water [employer] threatened to shut off services in your home? No 02/21/2024 Social Connection and Isolat ion Panel [NHANES] Answer Date Recorded In a typical week, how many times do you talk on the phone with family, friends, or neighbors? Twice a week 02/21/2024 How often do you get togethe r with friends or relatives? More than three times a week 02/21/2024 How often do you attend [facility] or yarsani services? More than 4 times per year 02/21/2024 Do you belong to any clubs o r organizations such as quaker groups, unions, fraternal or athletic groups, or school groups? No 02/21/2024 How often do you attend meet ings of the clubs or organizations you belong to? Never 02/21/2024 Are you , , di vorced, , never , or living with a partner? 02/21/2024 AUDIT-C Answer Date Recorded Q1: How often do you have a drink containing alcohol? Never 08/12/2024 Q2: How many drinks containi ng alcohol do you have on a typical day when you are drinking? Patient does not drink Q3: How often do you have si x or more drinks on one occasion? Never 08/12/2024 Overall Financial Resource Strain (CARDIA) Answe r Date Recorded How hard is it for you to pa y for the very basics like food, housing, medical care, and heating? Not hard at all 02/21/2024 PHQ-2 Answer Date Recorded PHQ-2 Total Score (If total score is 3 or more points, staff should administer the PHQ-9) 0 09/16/2024 Hunger Vital Sign Answer Date Recorded Within the past 12 months, y ou worried that your food would run out before you got the money to buy more. Never true 02/21/20 24 Within the past 12 months, t he food you bought just didn't last and you didn't have money to get more. Never true 02/21/2024 PRAPARE - Transportation Answer Date Re corded In the past 12 months, has l ack of transportation kept you from medical appointments or from getting medications? No 01/30 In the past 12 months, has l ack of transportation kept you from meetings, work, or from getting things needed for daily living? No 02/21/2024 PHQ-9 Answer Date Recorded PHQ-9 Total Score 8 02/11/2024 Housing Stability Vital Sign Answer Nikolas e Recorded In the last 12 months, was t here a time when you were not able to pay the mortgage or rent on time? No 02/21/2024 In the past 12 months, how m any times have you moved where you were living? 0 02/21/2024 At any time in the past 12 m [facility], were you homeless or living in a alf (including now)? No 02/21/2024 Sex and Gender Information Value Date Recorded Sex Assigned at Not on file Legal Sex Male 1:27 PM LATCHER Gender Identity Not on file Sexual Orientation Not on file Obstetrics History Last Filed Vital Signs Vital Sign Reading Time Taken Comments Blood Pressure 114/66 09/16/2024 10:41 AM CDT Pulse 59 09/16/2024 10:41 AM CDT Temperature 36.8 C (98.3 F) 09/16/2024 10:41 AM CDT Respiratory Rate 18 09/16/2024 10:41 AM CDT Oxygen Saturation 96% 09/16/2024 10:41 AM CDT Inhaled Oxygen Concentration - - Weight 78.1 kg (172 lb 3.2 oz) 09/16/2024 10:41 AM CDT Height 180.3 cm (5' 11 ) 09/16/2024 10:41 AM CDT Body Mass Index 24.02 09/16/2024 10:41 AM CDT Plan of Treatment Health Maintenance Due Date Last Done Comments Hepatitis C Screening 1945 Hepatitis B Screening 1963 DTaP/Tdap/Td Vaccine (1 - Tdap) 11/30/2024 Postponed from 01/02/1956 (Patient declined, but will receive in the future) Fall Risk Assessment 02/10/2025 02/11/2024, 09/09/2023, 11/29/2021, Additional history exists Well Visit 65+ 02/10/2025 02/11/2024, 03/2022, 01/14/2019 Influenza Vaccine (Season Ended) 2025 03/31/2022, 04/09/2019 Depression Screening 09/16/2025 09/16/2024, 04/13/2024, 02/11/2024, Additional history exists Pneumococcal vaccine 65+ Completed 06/16/2015, 07/01 Zoster Vaccine Completed 06/28/2020, 03/31, 07/16/2012 Goals Goal Patient Goal Type Associated Problems Recent Progress Patient-Stated? Author ACO SW Goal - Level of ADL/IADL assistance will meet patient's needs ACO Care Management On track(2023 11:01 AM CDT) Yovana Ortiz, MANAGER PHILOSOPHY Note: Problem: Inadequate assistance to manage ADL's/IADL's Interventions: - Assess current level of functioning and needs with patient/family. - Assess appropriateness for Home Health. Contact PCP office to start referral process if skilled need is present. - Provide information regarding insurance coverage of specific resources. - Provide patient/family with resources for their specific need. - Identify/assist in obtaining available community resources. - Assess need for higher level of care or SNF/ECF placement. Coordinate placement if appropriate. Procedures Procedure Name Priority Date/Time Associated Diagnosis Comments POC INFLUENZA A/B, COVID-19 ANTIGEN Routine 09/16/2024 11:05 AM CDT Acute cough from Last 3 Months Results * POC Influenza A/B, COVID-19 antigen (09/16/2024 11:05 AM CDT) Influenza A Ag, POC Negative Negative [facility] Influenza B Ag, POC Negative Negative [facility] COVID-19 Ag POC Presumptive Negative Presumptive Negative, Invalid [facility] Nasal 09/16/2024 11:0 5 AM CDT us Arabella Escalante POINT OF CARE TEST ORDER RAMOS Final Result [facility] [address] [facility] [facility] [address] [place] [address], [facility] from Last 3 Months Insurance MEDICARE [facility] [place] MEDICARE [place] [employer] [employer] [place] MEDICARE [place] [employer] [employer] [place] Care Teams Acetone Recovery Worker Relationship Specialty Start Date End Date Eren Bojorquez MD PCP - General Family Medicine 12/17/18
--- OUTSIDE RECORDS SUMMARY | 2024-10-15 15:45 | XMS_ITS | Referral Summary ---
Author Organization [facility] [address] [place] [address] [address] [place] [address] Care Team Providers Care Collector Of Internal Revenue Name Role Phone Eren Bojorquez MD Primary Care Provider [phone] Encounters Date Type Department Care Team Description 09/16/2024 10:30 AM CDT Office Visit [facility] Family Medicine at [address] [place] [address] Arabella España PA Acute cough (Primary Dx); Localized swelling on left hand 08/12/2024 11:30 AM HAND LEATHER TRIMMER Telemedicine [facility] Family Medicine at [address] [place] [address] Jacquelyn Rodriguez NP 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) (Primary Dx); Parkinson's disease without dyskinesia or fluctuating manifestations (HCC); Chronic diastolic heart failure (HCC); Encounter for hepatitis C screening test for low risk patient; Need for hepatitis B screening test; Mixed hyperlipidemia; Neuropathy 08/03/2024 11:15 AM HAND LEATHER TRIMMER Office Visit [facility] Medical [facility] Cardiology [address] [facility] [address] [place] [address] Frederick Bonds MD Dilated cardiomyopathy (HCC) (Primary Dx) from Last 3 Months Allergies Active Allergy Reactions Criticality Noted Date [...] mg tablet Rx: Vitamin C Ac tive [id number]-[id number] pa-dpa-fish oil 1,050-1,200 mg capsule Rx: [place] 3 Active multivit with min-folic acid 200 [...] 08/12/2024 Assessment & Plan (08/12/2024 12:09 PM HAND LEATHER TRIMMER): Slow progression Continue trazodone 50mg HS to help with sleep No elopement or behavior concerns at this time Neuropathy 08/12/2024 Assessment & Plan (08/12/2024 12:10 PM HAND LEATHER TRIMMER): Not at goal Possibly worsened by Parkinson's and swelling Discussed with pt and possible side effects especially given dementia Start on low dose at bed time to help with neuropathy that prevents restful sleep. Advised can stop if s/e. Parkinson's disease without dyskinesia or fluctuating manifestations 01/08/2024 Assessment & Plan (08/12/2024 12:09 PM HAND LEATHER TRIMMER): Not at goal Encourage to schedule follow [...] use Can trial exercises classes on APDA YouTube channel as tolerated NPT today Follow-up in 4 months Assessment & Plan (02/11/2024 12:46 PM CDT): Progressive, worsening Continue working with PT/OT Home health and ACO referrals Keep f/u with [facility] clinic Assessment & Plan (01/08/2024 11:52 [...] may discontinue trazodone. He will see our PARAKEET RAISER in 3 months and at that time [...] necessary in Parkinson disease. He sees a associate brand manager who is attempting some heavy metal chelation though I do not have labs that show he has high heavy metals. Lewy body dementia with behavioral disturbance 0 01/08/2024 Assessment & Plan (02/11/2024 12:46 PM CDT): Progressive, worsening Continue working with PT/OT Home health and ACO referrals Keep f/u with [facility] clinic Weakness 09/09/2023 Assessment & Plan (02/11/2024 12:46 PM CDT): Progressive, worsening Continue working with PT/OT Home health and ACO referrals Keep f/u with [facility] clinic Assessment & Plan (11/07/2023 12:19 [...] Worsening, progressive PT/OT referral to [facility] in [place] Advise to maintain independence and continue moving [...] 02/04/2019 Assessment & Plan (08/12/2024 12:08 PM HAND LEATHER TRIMMER): Stable Lab Results Component Value Date CHOL [...] 12:44 PM CDT): Chronic Keep appt with automatic head sawyer on 05/21/24 Continue ASA 81mg, HCTZ 12.5mg Labs ordered Chronic diastolic heart failure 02/01/2015 Assessment & Plan (08/12/2024 12:08 PM HAND LEATHER TRIMMER): Stable edema, asymptomatic otherwise Continue HCTZ 12.5mg [...] 19 Overview (10/05/2016): ROBBINS (dyspnea on exertion) Immunizations Immunization Administration Dates Next Due Influenza, Trivalent, High D ose, Split, Preservative Free, Intramuscular 04/09/2019 Influenza, Unspecified 08/12/2024(Deferr ed: Patient Refused),09/09/2023(Deferred: Patient Refused),03/31/2022,08/09/2021(Deferre d: Patient Refused),07/01/2021(Deferred: Patient Refused),07/01/2020(Deferred: Patient Refused),07/01/2020(Deferred: Patient Refused) Pneumococcal Conjugate PCV 13 06/16/2015 Pneumococcal Polysaccharide PPV23 07/16/2012 ZOSTER LIVE 07/16/2012 ZOSTER Recombinant 06/28/2020,04/14/2020 Social History Tobacco Use Types Packs/Day Years Used Date Smoking Tobacco: Never Smokeless Tobacco: Never Tobacco Cessation:Counseling Given: Not Answered Alcohol Use Standard Drinks/Week Comments No 0 (1 standard drink = 0.6 oz pur e alcohol) [facility] Utilities Answer Date Recorded In the past 12 months has th e [email or web address], gas, oil, or water [employer] threatened to shut off services in your [...] week 02/21/2024 How often do you attend chur ch or adventist services? More than 4 times per year 02/21/2024 Do you belong to any clubs o r organizations such as protestant groups, unions, fraternal or athletic groups, or [...] any time in the past 12 m [facility], were you homeless or living in a [place] facility (including now)? No 02/21/2024 Sex and Gender Information Value Date Recorded Sex Assigned at Not on file Legal Sex Male 1:27 PM HAND LEATHER TRIMMER Gender Identity Not on file Sexual Orientation Not on file Last Filed Vital Signs Vital Sign Reading [...] 09/16/2024 10:41 AM CDT Plan of Treatment Not on file Goals Goal Patient Goal Type Associated Problems Recent Progress Patient-Stated? Author ACO SW Goal - Level of ADL/IADL assistance will meet patient's needs ACO Care Management On track(2023 11:01 AM CDT) No Yovana Garcia, PAPER CAP MACHINE OPERATOR Note: Problem: Inadequate assistance to manage ADL's/IADL's [...] CDT) Influenza A Ag, POC Negative Negative [facility] Influenza B Ag, POC Negative Negative [facility] COVID-19 Ag POC Presumptive Negative Presumptive Negative, Invalid [facility] Nasal 09/16/2024 11:0 5 AM CDT Arabella Escalante POINT OF CARE TEST ORDER RAMOS Final Result [facility] [address] [facility] [address] [place] [address], [facility] from Last 3 Months Insurance MEDICARE [facility] MEDICARE [place] [facility] [place] [address] Care Teams Collector Of Internal Revenue Relationship Specialty Start Date End Date Eren Bojorquez MD PCP - General Family Medicine 12/17/18
--- OUTSIDE RECORDS SUMMARY | 2024-10-15 15:45 | XMS_ITS | Encounter Summary ---
Author Organization [facility] Care Team Providers Care Commercial Lending Assistant Name Role Phone Eren Bojorquez MD Primary Care Provider [phone] Yovana GarciaW Unavailable Nani Colin RN Unavailable [phone] Encounter Details Date Type Department Care Team (Latest Contact Info) Description 06/25/2017 Orders Only [facility] ProviderRicardo MD [address] [place] [address] Social History Tobacco Use Types Packs/Day Years Used Date Smoking Tobacco: Never Alcohol Use Standard Drinks/Week Comments No 0 (1 standard drink = 0.6 oz pur e alcohol) Sex and Gender Information Value Date Recorded Sex Assigned at Not on file Legal Sex Male 1:27 PM PLANT SAFETY ENGINEER Gender Identity Not on file Sexual Orientation Not on file documented as of this encounter Plan of Treatment Not on file documented as of this encounter Procedures Procedure Name Priority Date/Time Associated Diagnosis Comments COLONOSCOPY - SCAN 06/25/2017 12 :00 AM PLANT SAFETY ENGINEER documented in this encounter Results * COLONOSCOPY - SCAN (06/25/2017 12:00 AM PLANT SAFETY ENGINEER) Narrative 06/25/2017 12:00 AM PLANT SAFETY ENGINEER Ordered by an unspecified provider. Historical Provider Final Res ult documented in this encounter Visit Diagnoses Not on filedocumented in this encounter Additional Health Concerns Infection Onset Date Last Indicated Resolved Time COVID: Suspected 09/16/2024 09/16/2024 09/16/2024 11:06 AM CDT documented as of this encounter Care Teams Commercial Lending Assistant Relationship Specialty Start Date End Date Eren Bojorquez MD PCP - General Family Medicine 12/17/18 Yovana Garcia, FINISHER MACHINE [address] [place] [address] Trapper Bird 02/13/24 02/20/24 Nani Colin RN [address] [place], [place] [id number] Fireperson 02/13/24 07/06/24 documented as of this encounter
--- OUTSIDE RECORDS SUMMARY | 2024-10-15 15:45 | XMS_ITS | CONTINUITY OF CARE DOCUMENT ---
Author Name [email or web address] Address Unknown Organization [facility] Address [address] [place] [address] Phone [phone] Care Team Providers Care Stock Pitcher Name Role Phone Jerel FOLEY, Saul Unavailable [phone] PATY CONTEH MD Unavailable PATY CONTEH MD Unavailable INSURANCE PROVIDERS Payer name Policy type / Coverage type Hellier red libertarian [employer] Other
--- OUTSIDE RECORDS SUMMARY | 2024-10-15 15:45 | XMS_ITS | Data Portability ---
Author Organization [facility], Main Office Address [address] [place] [address] Care Team Providers Care Welder Plasma Arc Name Role Phone PATY LAU Primary Care Provider Unavailabl PATY Meek Referring Provider Unavailable Assessment Encounter Date Assessment Date Assessment LastModified by Organization Details LastModified Time 03/28/2023 03/28/2023 This note is dictated and transcribed by [employer]. Truck Shop Supervisor variances may occur. Despite proofreading, typographical errors may occur. [email or web address] Not available 04/01/2023 08:52:10 Plan of Treatment Reminders Order Date Submit Date Provider Last Modified By Organization Details Last Modified Time Details Appointments None record ed. Lab None record ed. Referral None record ed. Procedures None record ed. Surgeries None record ed. Imaging None record ed. Medication Orders None record ed. Patient TargetsNo targets recorded. Patient Instructions Encounter Date Encounter Id Patient Instructions Last Modified By Organization Details Last Modified Time 03/28/2023 [id number] paronychia: care instructions [email or web address] Not available 04/01/2023 08:52:32 Reason for Referral None Reported. Problems Name Problem SNOMED Code Status Onset Date Resolution Date Notes Provider Name and Address Organization Details Recorded Time Paronychia of toe of right foot 8792242931297 9102 Active 2020 Not Available [facility] 3 23:09:53 Pain in toe 362511464 Active 2020 Not Available [facility] 3 23:09:53 Dystrophia unguium 26353319 Active 2022 Callum Grove DPM [address] [facility] [address] [facility] [facility] [address], [place], [address] , [facility] [employer] 3 15:41:16 Ingrowing toenail 445040031 Active 2022 Callum Grove DPM [address] [facility] [facility], [place], [address] , [employer] [facility] 17:17:43 Notes:COPD, PROSTATE ISSUES Problem Notes None recorded. Procedures Surgical History Date Name Laterality Status Provider Name and Address Organization Details Recorded Time 03/28/20 Nail Debridement completed Callum Grove DPM [address], [address], [place], [address], [employer] [facility] 03/28/2023 17:17:36 02/19/20 Nail Debridement completed Callum Grove DPM [address], [address], [place], [address], [employer] 02/18/2023 14:50:05 cholecystectomy completed Not Available [employer] 08/29/2022 23:06:40 Imaging Results None recorded. Procedure Notes None recorded. Medical Equipment None Reported. Allergies Allergen ID Allergen Name Allergen Category Reaction Reaction Severity Criticality Documentation Date Start Date Code Code System Note Provider Name and Address Organization Details Recorded Time 07616 Levaquin medicatio n Not available Not available Not available 08/29/2022 86617 2 RxNorm Not Available [facility] 23:13:15 Medications Name Sig Start Date Stop Date Status Note LastModified by Organization Details LastModified Time ivermectin 3 mg tablet TAKE 6 TABLETS (18MG TOTAL) BY MOUTH EVERY DAY X 5 DAYS 02/27 completed Not Available Not Available Not Available albuterol sulfate 2.5 mg/3 mL (0.083 %) solution for nebulizatio n PLEASE SEE ATTACHED FOR DETAILED DIRECTION S active Not Available Not Available No t Available trazodone 50 mg tablet TAKE ONE-HALF TABLET BY MOUTH EVERY DAY AT BEDTIME NEEDED FOR SLEEP active Not Available Not Available No t Available cephalexin 500 mg capsule TAKE ONE CAPSULE BY MOUTH TWO TIMES A DAY FOR SEVEN DAYS 02/27 completed Not Available Not Available Not Available ferrous sulfate 325 mg (65 mg iron) tablet TAKE 1 TABLET BY MOUTH DAILY FOR 30 DAYS active Not Available Not Available No t Available hydrochloro thiazide 12.5 mg capsule TAKE 1 CAPSULE BY MOUTH EVERY DAY active Not Available Not Available No t Available budesonide 0.5 mg/2 mL suspension for nebulizatio n INHALE 0.5 MG (2 ML) BY INHALATIO N TWICE DAILY - RINSE AND SPIT AFTER EACH USE active Not Available Not Available No t Available hydroxychlo roquine 200 mg tablet TAKE 2 TABLETS BY MOUTH ONCE WEEKLY FOR 8 WEEKS 12/29 completed Not Available Not Available Not Available methylpredn isolone 4 mg tablets in a dose pack TAKE 6 TABLETS ON DAY 1 DIRECTED ON PACKAGE AND DECREASE BY 1 TAB EACH DAY FOR A TOTAL OF 6 DAYS 12/29 completed Not Available Not Available Not Available hydrocodone 10 mg-chlorphe niramine 8 mg/5 mL oral susp extend.rel 12hr TAKE 5 MILLILITE RS BY MOUTH EVERY 12 (TWELVE) HOURS NEEDED FOR COUGH active Not Available Not Available No t Available albuterol sulfate HFA 90 mcg/actuati on aerosol inhaler INHALE 1 - 2 PUFFS BY MOUTH EVERY 4 - 6 HOURS NEEDED FOR SHORTNESS OF BREATH OR WHEEZING active Not Available Not Available No t Available diazepam 5 mg tablet active Not Available Not Available No t Available eszopiclone 2 mg tablet TAKE 1 TABLET BY MOUTH ONCE, TAKE WITH YOU TO SLEEP CENTER 12/29 completed Not Available Not Available Not Available fluocinolon e acetonide oil 0.01 % ear drops PLEASE SEE ATTACHED FOR DETAILED DIRECTION S active Not Available Not Available No t Available ID NOW COVID-19 Test Kit TEST DIRECTED TODAY active Not Available Not Available No t Available Paxlovid 300 mg (150 mg x 2)-100 mg tablets in a dose pack active Not Available Not Available Not Available Vitals Date Recorded Body height Heart rate Systolic blood pressure Diastolic blood pressure Provider Name and Address Organization Details Last Updated DateTime 10/19/2021 177.8 cm 70 /min 121 mm[Hg] 70 mm[Hg] Not Available [facility] 08/29/2022 23:08:34 Date Recorded Body height Provider Name an d Address Organization Details Last Updated DateTime 10/26/2021 177.8 cm Not Available [facility] 23:08:34 Date Recorded Body height Oxygen saturation Oxygen saturation in Arterial blood by Pulse oximetry Heart rate Systolic blood pressure Diastolic blood pressure Provider Name and Address Organization Details Last Updated DateTime 2 177.8 cm 95 % 95 % 74 /min 112 mm[Hg] 68 mm[Hg] Not Available [facility] 3 23:08:34 Date Recorded Heart rate Respiratory rate Oxygen saturation Oxygen saturation in Arterial blood by Pulse oximetry Systolic blood pressure Diastolic blood pressure Provider Name and Address Organization Details Last Updated DateTime 3 58 /min 14 /min 97 % 97 % 119 mm[Hg] 71 mm[Hg] Gisselle Baird [place] [employer] [facility] 3 12:14:20 Date Recorded Heart rate Respiratory rate Oxygen saturation Oxygen saturation in Arterial blood by Pulse oximetry Systolic blood pressure Diastolic blood pressure Provider Name and Address Organization Details Last Updated DateTime 3 69 /min 14 /min 97 % 97 % 118 mm[Hg] 65 mm[Hg] Gisselle Baird [facility] [employer] [facility] 3 17:04:37 Social History Question Answer Notes LastModified by Organizat ion Details LastModified Time Tobacco Smoking Status Never Smoker Not Available [facility] 08/29/2022 23:06:01 What Is Your Level Of Alcohol Consumption? None [id number] Information not available 08/29/2022 Sex: Unknown Functional Status None recorded. Mental Status None recorded. Family History Nothing Reported. Medical History No medical history recorded. Past Encounters Encounter ID Performer Location Encounter Start Date Encounter Closed Date Diagnosis/Indication Diagnosis SNOMED-CT Code Diagnosis ICD10 Code Diagnosis Note [id number] [facility] [address] [place] [address], [address] [address] 12/29/2020 00:00:00 12/29/2020 13:46:04 [id number] [facility] [address] [place] [address], [address] [address] 05/16/2021 00:00:00 05/16/2021 13:09:48 [id number] [facility] [address] [place] [address], [address] [address] 10/19/2021 00:00:00 10/19/2021 14:44:42 [id number] [facility] [address] [facility], [address] [address] 10/26/2021 00:00:00 10/26/2021 14:10:43 [id number] [facility] [address], [address] [place] [address] 01/18/2022 00:00:00 01/18/2022 15:09:15 [id number] Callum Grove DPM [facility] Podiatry Sean [place] [address] [place] [address] 02/18/2023 12:07:45 02/27/2023 17:01:48 Dystrophia unguium 21308308 L60.3 Nails 1 through 10 were debrided with sharp mechanical debridemen t without incident. Nails were debrided and greater than 50% length and thickness where needed. Unable to cut own toenails 019912751 Z74.1 [id number] Callum Grove DPM [facility] Podiatry Sean Luna [address] [address] [address] [place] [address] 03/28/2023 16:52:15 04/02/2023 10:29:21 Pain in toe 381731098 M79.674 as above Ingrowing toenail 884643 009 L60.0 right great toenail, lateral borderSlan t back performed affected nail cornerprov veronica daily wound care until healedreco mmend topical antibiotic ointment Band-AidPa tient is to soak in warm Epsom salt soaks math for approximat morgan 20 min daily for 5-7 days until infection has resolved. Patient is to dress the wound daily with topical antibiotic ointment and Band-Aid. Patient to monitor for signs of infection, if worsens seek medical attention at the nearest ER.follow- up 1 week if not resolved Health Concerns Section Related Observation LastModified by Organization Detai ls LastModified Time None Recorded Concern Status LastModified by Organization Details LastModified Time None Recorded Advance Directives Directive None Recorded Payers Encounter Date Sequence Insurance Name Policy Number Policy Jean Covered Member ID Jean Member ID Guarantor Name 02/18/2023 1 [place] Aldo Reza [id number] Aldo Reza 02/18/2023 2 [employer] (MEDICARE SUPPLEMENT) PLAN G Aldo Reza [id number] Aldo Reza 03/28/2023 1 [place] Aldo Reza [id number] Aldo Reza 03/28/2023 2 [employer] (MEDICARE SUPPLEMENT) PLAN G Aldo Reza [id number] Aldo Reza Notes Date Note Type Note Provider Name and Address Organization Details Recorded Time 02/18/2023 text/html . Patient is a 78-year-old male who returns the office for routine foot care. Patient denies any pain with weight-bearing. Patient denies any history of wounds. Patient states the nails have become long and they are tender. Patient would like to have them cut as he has difficulty cutting them. Patient denies any other complaints. Callum Grove DPM [address] [employer], [place], [address], [employer] 02/27/2023 15:43:52 03/28/2023 text/html . Patient is a 78-year-old male who presents to the office with complaints of redness and pain to his right great toenail. Patient states he has had some drainage and pain with pressure and walking. Patient denies any fever, chills, nausea vomiting. Patient states he has been dealing with this for a few days and states it has not improved. Patient denies any other complaints. Callum Grove DPM [address], [employer], [place], [address], [employer] 04/01/2023 08:53:20
== END 2024-10-15 15:41 | disposition home or self-care (01) ==
PROVIDERS: PCP Family Medicine; Visit Provider Nurse Practitioner Family
DX: N20.0 Calculus of kidney (principal); N40.0 Benign prostatic hyperplasia without lower urinary tract symptoms
CPT/HCPCS: 74176

== ENCOUNTER 2025-01-24 22:53 | Emergency (ER) | payer MEDICARE, OTHER, SELFPAY ==
--- NOTE | ~2025-01-24 | XR_ITS ---
XR chest 1V 01/24/2025 23:24 Indication: Coughing episode Procedure: AP view the chest Comparison: Comparison to multiple prior studies sequentially, with oldest reviewed study dated 10/2018. Findings: Heart size normal. Bibasilar atelectasis. No focal pneumonia, edema or effusion. No acute o sseous abnormality. Shallow inspiration with crowding of the pulmonary vasculature. Impression: 1: Bibasilar atelectasis. Reviewed, dictated and finalized at location B. Impression: 1: Bibasilar atelectasis.
[2025-01-24 22:56] VITALS: BP 109/63; PULSE 52; RESP 17; TEMP 36.8; O2SAT 97
--- NOTE | 2025-01-24 23:00 | ECG_ITS ---
Test Date: 2025-01-24 23:01:51 Measurements Intervals Evans Rate: 66 P: 43 NE: 143 QRS: 35 QRSD: 94 T: 61 QT: 364 QTc: 382 Interpretive Statements SINUS RHYTHM No previous ECG available for comparison Electronically Signed On 01-25-2025 12:39:24 CDT by Sammy Bartholomew M.D.
[2025-01-24 23:14] VITALS: RESP 17; O2SAT 97
[2025-01-24 23:20] LABS: Hematocrit 39.3 % (42.0-52.0); Hemoglobin 12.9 g/dL (14.0-18.0); Immature Granulocyte Percent A 0.2 % (0-0.5); Lymphocytes Absolute Auto 1.41 K/mm3 (0.9-3.2); Mean Corpuscular HGB Conc 32.8 g/dl (32-36); Mean Corpuscular Hemoglobin 30.4 pg (26-34); Mean Corpuscular Volume 92.5 fl (80-100); Nucleated Red Blood Cells Absolute Auto 0.000 K/mm3 (0.0-0.012); Nucleated Red Blood Cells Perc 0.0 % (0.0-0.2); Platelet Count Result 192 k/mm3 (150-375); Red Blood Count 4.25 M/mm3 (4.6-6.20); White Blood Count 5.2 K/mm3 (4.5-10.0)
--- OUTSIDE RECORDS SUMMARY | 2025-01-24 23:37 | XMS_ITS | Encounter Summary ---
Author Organization [facility] Facility Care Team Providers Care Hull Line Crew Member Name Role Phone Eren Bojorquez MD Primary Care Provider [phone] Yovana GarciaW Unavailable [phone] Nani Colin RN Unavailable [phone] Encounter Details Date Type Department Care Team (Latest Contact Info) Description 06/25/2017 Orders Only [facility] CLINCONV ProviderRicardo MD [address] [place] [id number] Social History Tobacco Use Types Packs/Day Years Used Date Smoking Tobacco: Never Alcohol Use Standard Drinks/Week Comments No 0 (1 standard drink = 0.6 oz pur e alcohol) Sex and Gender Information Value Date Recorded Sex Assigned at Not on file Legal Sex Male 1:27 PM WRITER PRODUCER Gender Identity Not on file Sexual Orientation Not on file documented as of this encounter Plan of Treatment Not on file documented as of this encounter Procedures Procedure Name Priority Date/Time Associated Diagnosis Comments COLONOSCOPY - SCAN 06/25/2017 12 :00 AM WRITER PRODUCER documented in this encounter Results * COLONOSCOPY - SCAN (06/25/2017 12:00 AM WRITER PRODUCER) Narrative 06/25/2017 12:00 AM WRITER PRODUCER Ordered by an unspecified provider. Historical Provider Final Res ult documented in this encounter Visit Diagnoses Not on filedocumented in this encounter Additional Health Concerns Infection Onset Date Last Indicated Resolved Time COVID: Suspected 09/16/2024 09/16/2024 09/16/2024 11:06 AM CDT documented as of this encounter Care Teams Hull Line Crew Member Relationship Specialty Start Date End Date Eren Bojorquez MD PCP - General Family Medicine 12/17/18 Yovana Garcia, SOFTWARE BUSINESS ANALYST [address] [place] [address] Heel Wheeler 02/13/24 02/20/24 Nani Colin RN [address] [place], [place] [id number] Bread Wrapper Operator 02/13/24 07/06/24 documented as of this encounter
--- OUTSIDE RECORDS SUMMARY | 2025-01-24 23:37 | XMS_ITS | Clinical Summary ---
Author Organization [facility] [address] Address [address] [place] [address] Care Team Providers Care Launch Check Out Name Role Phone Eren Bojorquez MD Primary Care Provider [phone] Allergies Active Allergy Reactions Criticality Noted Date Comments Levofloxacin Joint pain Low Medications oregano oil 1,500 mg capsule 1,500 mg. 0 0 02/02/20 15 Active turmeric, bulk, (CURCUMIN) 95 % powder 95 %. 0 0 02/02/20 15 Active aspirin 81 mg tabletIndications:C erebral Thromboembolism Prevention Take 1 tablet by mouth daily Active ascorbic acid (VITAMIN C) 100 mg tabletIndications:V itamin C Deficiency Rx: Vitamin C Active hjusf-[id number]-epa-dpa -fish oil 1,050-1,200 mg capsuleIndications: hypertriglyceridemi a Rx: [place] 3 Active multivit with min-folic acid 200 mcg tablet,chewableIndi cations:Vitamin Deficiency Prevention Rx: Multivitamin Adult - Tablet Active magnesium oxide 200 mg magnesium tablet,chewableIndi cations:hypomagnese ashley Rx: Magnesium Active docusate sodium (COLACE) 100 mg capsuleIndications: constipation Take 1 capsule (100 mg total) by mouth 2 (two) times a day Active cholecalciferol (VITAMIN D-3) 5,000 unit capsuleIndications: Vitamin D Deficiency Take 1 capsule by mouth daily Active albuterol 2.5 mg /3 mL (0.083 %) nebulizer solution A ctive albuterol HFA (PROVENTIL HFA,VENTOLIN HFA,PROAIR HFA) 90 mcg/actuation inhaler Active hydroCHLOROthiazide (MICROZIDE) 12.5 mg capsuleIndications: hypertension Take 1 capsule (12.5 mg total) by mouth daily 90 capsule 3 01/16/20 24 Active traZODone (DESYREL) 50 mg tabletIndications:i nsomnia associated with depression TAKE ONE TO ONE AND ONE-HALF TABLETS BY MOUTH AT BEDTIME NEEDED FOR INSOMNIA 135 tablet 1 09/18/19 25 Active Active Problems Problem Noted Date Diagnosed Date 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 Advised can stop if s/e. Parkinson's disease without dyskinesia or fluctuating manifestations 01/08/2024 Assessment & Plan (12/21/2024 1:02 PM CDT): Mr. Reza was doing ok overall. He had no recent falls. He continued to have swelling in his right hand and some pain. He also had urinary urgency and frequency. He did have a urologist that he follow up with. He tried levodopa for 2 weeks and felt restless and his sleep was worse. He was on trazodone with benefit, He completed in home PT/OT/ST this past Saturday. Recommendations Increase water intake to at least 64 oz of water a day Continue to follow up with HCP as recommended and as needed PCP manages the trazodone Fall precaution Follow up in 6 months Assessment & Plan (08/12/2024 12:09 PM REFERENCE DATA EXPERT): Not at goal Encourage to schedule follow [...] local use Can trial exercises classes on [employer] channel as tolerated NPT today Follow-up in 4 months Assessment & Plan (02/11/2024 12:46 PM CDT): Progressive, worsening Continue working with PT/OT Home health and ACO referrals Keep f/u with [facility] clinic Assessment & Plan (01/08/2024 11:52 [...] may discontinue trazodone. He will see our TERRITORY MANAGER GENERAL SALES in 3 months and at that time [...] necessary in Parkinson disease. He sees a landscape gardener who is attempting some heavy metal chelation though I do not have labs that show he has high heavy metals. Lewy body dementia with behavioral disturbance 0 01/08/2024 Assessment & Plan (02/11/2024 12:46 PM CDT): Progressive, worsening Continue working with PT/OT Home health and ACO referrals Keep f/u with [facility] clinic Weakness 09/09/2023 Assessment & Plan (02/11/2024 12:46 PM CDT): Progressive, worsening Continue working with PT/OT Home health and ACO referrals Keep f/u with [facility] clinic Assessment & Plan (11/07/2023 12:19 [...] AM CDT): Worsening, progressive PT/OT referral to M in [place] Advise to maintain independence and continue moving [...] 02/04/2019 Assessment & Plan (08/12/2024 12:08 PM REFERENCE DATA EXPERT): Stable Lab Results Component Value Date CHOL [...] 12:44 PM CDT): Chronic Keep appt with vp patient on 05/21/24 Continue ASA 81mg, HCTZ 12.5mg Labs ordered Chronic diastolic heart failure 02/01/2015 Assessment & Plan (08/12/2024 12:08 PM REFERENCE DATA EXPERT): Stable edema, asymptomatic otherwise Continue HCTZ 12.5mg daily Continue compression socks Check labs prior to next visit Edema 02/01/2015 Overview (10/05/2016): Edema Chronic obstructive pulmonary disease 02/01/2015 Overview (10/05/2016): COPD (chronic obstructive pulmonary disease) Pulmonary hypertension 02/01/2015 Overview (10/05/2016): Pulmonary HTN Slow transit constipation Resolved Problems Problem Noted Date Diagnosed Date Resolved Date Ingrowing toenail 03/28/2023 09/16/2024 Abdominal pain, LUQ 11/29/2021 02/11/20 Paronychia of toe of right foot 05/15/2021 09/16/2024 Pain in toe 12/29/2020 09/16/2024 Acute left-sided low back pa in without sciatica 06/09/2020 08/12/2024 H/O hernia repair 01/14/2019 09/16/2024 Kidney stones 01/14/2019 09/16/2024 Cataract 07/30/2018 09/16/2024 Adiposity 02/01/2015 01/14/2019 Overview (10/05/2016): Obesity Dyspnea on exertion 02/01/2015 01/15/20 19 Overview (10/05/2016): ROBBINS (dyspnea on exertion) Encounters Date Type Department Care Team Description 12/30/[address] [facility] Family Medicine at [address] [place] [address] Eren Bojorquez MD 12/21/2024 11:30 AM CDT Office Visit [facility] Movement Disorders [address] [place] [address] 7[address] [place] [address] Irma Ni, NHI Lewy body dementia with behavioral disturbance (HCC) (Primary Dx); Parkinson's disease without dyskinesia or fluctuating manifestations (HCC) 12/17/2024 2:00 PM CDT Home Care Visit [address] [place] [address] Yeimy Rodriguez, OT OT OASIS DISCHARGE 12/15/2024 3:00 PM CDT Home Care Visit [address] [place] [address] Ayesha Avila, TURN SEWER TURN SEWER DISCIPLINE DISCHARGE 12/15/2024 2:30 PM CDT Home Care Visit [address] [place] [address] Yeimy Rodrgiuez, OT OT HOME VISIT 12/14/2024 1:00 PM CDT Home Care Visit [address] [place] [address] Ayesha West, PT PT REASSESSMENT 12/14/2024 Home Care Visit [address] [place] [address] Ayesha West, PT PT DISCIPLINE DISCHARGE 12/11/2024 2:00 PM CDT Home Care Visit [address] [place] [address] Ayesha West, PT PT HOME VISIT 12/10/2024 2:00 PM CDT Home Care Visit [address] [place] [address] Yeimy Rodriguez, OT OT HOME VISIT 12/08/2024 2:30 PM CDT Home Care Visit [address] [place] [address] Yeimy Rodriguez, OT OT HOME VISIT 12/07/2024 1:00 PM CDT Home Care Visit [address] [place] [address] [place] Ayesha ruiz SLP TURN SEWER HOME VISIT 12/04/2024 3:30 PM CDT Home Care Visit [address] [place] [address] Nani Allen, LITHOGRAPHIC GENERAL WORKER PT HOME VISIT 12/03/2024 2:00 PM CDT Home Care Visit [address] [place] [address] Yeimy Rodriguez, OT OT REASSESSMENT 12/02/2024 2:00 PM CDT Home Care Visit [address] [place] [address] Hernandez[place]-Ackl inAyesha, TURN SEWER TURN SEWER REASSESSMENT 12/01/2024 2:00 PM CDT Home Care Visit [address] [place] [address] Yeimy Rodriguez, OT OT HOME VISIT 11/30/2024 2:00 PM CDT Home Care Visit [address] [place] [address] Hernandez[place]-Ackl inAyesha SLP TURN SEWER HOME VISIT 11/27/2024 3:00 PM CDT Home Care Visit [address] [place] [address] Nani Allen, KALPANA PT HOME VISIT 11/26/2024 2:00 PM CDT Home Care Visit [address] [place] [address] HernandezlandOliAckl inAyesha, TURN SEWER TURN SEWER HOME VISIT 11/25/[address] [facility] [address] [address] Gina Orozco, TERRITORY MANAGER GENERAL SALES 11/25/[address] [facility] Family Medicine at [address] [place] [address] Eren Bojorquez MD After Hours 11/24/2024 2:00 PM CDT Home Care Visit [address] [place] [address] [address] [place] [address] Ayesha Avila SLP TURN SEWER HOME VISIT 11/20/2024 3:45 PM CDT Home Care Visit [address] [address] [place] [address] Autumn Young COTA OT HOME VISIT 11/20/2024 9:00 AM CDT Home Care Visit [address] [address] [place] [address] Ayesha West, PT PT REASSESSMENT 11/19/2024 3:00 PM CDT Home Care Visit [address] [place] [address] [place] [address] Autumn Young COTA OT HOME VISIT 11/19/2024 Results Follow-Up [facility] Family Medicine at [address] [place] [address] Arabella España PA XR Hand Left 3+ Vw 11/18/2024 3:00 PM CDT Home Care Visit [address] [place] [address] [place] [address] Nani Allen, LITHOGRAPHIC GENERAL WORKER PT HOME VISIT 11/17/2024 12:45 PM CDT Home Care Visit [address] [place] [address] Ayesha Avila SLP TURN SEWER HOME VISIT 11/16/2024 1:59 PM CDT - 11/16/2024 11:59 PM CDT Hospital Encounter [facility] [address] [place] [address] Left hand pain Discharge Disposition: Discharge to home or self care 11/16/2024 1:15 PM CDT Office Visit [facility] Family Medicine at [address] [place] [address] Arabella España PA Left hand pain (Primary Dx) 11/12/2024 12:15 PM CDT Home Care Visit [address] [place] [address] Ayesha Avila, TURN SEWER TURN SEWER HOME VISIT 11/11/2024 2:00 PM CDT Home Care Visit [address] [place] [address] Yeimy Rodriguez, OT OT REASSESSMENT 11/11/2024 2:00 PM CDT Home Care Visit [address] [place] [address] Nani Allen, KALPANA PT HOME VISIT 11/10/2024 4:00 PM CDT Home Care Visit [address] [place] [address] Ayesha Avila, TURN SEWER TURN SEWER HOME VISIT 11/09/2024 9:30 AM CDT Home Care Visit [address] [place] [address] Yeimy Rodriguez, OT OT HOME VISIT 11/06/2024 3:00 PM CDT Home Care Visit [address] [place] [address] Nani Allen, KALPANA PT HOME VISIT 11/05/2024 9:30 AM CDT Home Care Visit [address] [place] [address] Yeimy Rodriguez, OT OT HOME VISIT 11/04/2024 1:00 PM CDT Home Care Visit [address] [place] [address] Ayesha Avila, TURN SEWER TURN SEWER INITIAL EVALUATION 11/04/[address] [facility] Family Medicine at [address] [place] [address] Eren Bojorquez MD contiued therapy 11/03/2024 Home Care Visit [address] [place] [address] Ayesha West, PT CARE CONFERENCE 11/02/2024 10:30 AM CDT Home Care Visit [address] [place] [address] Yeimy Rodriguez, OT OT INITIAL EVALUATION 11/02/2024 9:00 AM CDT Home Care Visit [address] [place] [address] [place] [address] Ayesha West, PT PT HOME VISIT 10/30/2024 Home Care Visit [address] [place] [address] Margo Gay, RN NURSE MED RECON FOR THERAPY 10/29/2024 Home Care Visit [address] [place] [address] Margo Gay, RN NURSE MED RECON FOR THERAPY 10/28/2024 Home Care Visit [address] [place] [address] Yeimy Rodriguez, OT CASE COMMUNICATION 10/28/2024 Home Care Visit [address] [place] [address] Margo Gay, RN NURSE MED RECON FOR THERAPY 10/27/2024 10:00 AM CDT Home Care Visit [address] [place] [address] Ayesha West, PT PT OASIS START OF CARE 10/27/2024 Plan of Care Documentation [address] [place] [address] 10/26/2024 Home Care Visit [address] [place] [address] Margo Gay, RN TELEPHONE ENCOUNTER 10/26/[address] [facility] Family Medicine at [address] [place] [address] Eren Bojorquez MD Medical Question/Miscellaneou s from Last 3 Months Immunizations Immunization Administration [...] Medical History Date Comments COPD (chronic obstructive pu lmonary disease) (HCC) Sleep apnea Kidney stones x13 History of hernia repair Diastolic dysfunction Non-ischemic cardiomyopathy (HCC) Lewy body dementia (HCC) 2023 Cataract surgery 2018 Sleep apnea, obstructive Migraine Most of life until a pprox 10 years ago Family History Medical History Relation Name Comments Alzheimer's disease Brother 2 Dontae Reza Alzheime r's disease; Kidney disease Father Papa Reza Renal disease ; Heart failure Mother Congestive hea rt failure; Heart failure Sister 1 Congestive hea rt failure; COPD Sister 2 Asaf Ruiz COPD; Relation Name Status Comments Brother 1 (Age 75) Brother 2 Dontae Reza Father Papa Reza (Age 85) Mother (Age 84) Sister 1 Sister 2 Asaf Ruiz Social History Tobacco Use Types Packs/Day Years Used Date Smoking Tobacco: Never Smokeless Tobacco: Never Tobacco Cessation:Counseling Given: Not Answered Alcohol Use Standard Drinks/Week Comments No 0 (1 standard drink = 0.6 oz pur e alcohol) OASIS D0700: Social Isolation Answer Da te Recorded Frequency of experiencing loneliness or isolatio n Never 12/17/2024 OASIS A1250: Transportation Answer Date Recorded Lack of Transportation (Medical) No 12/17/2024 Lack of Transportation (Non-Medical) No 12/17/2024 Patient Unable or Declines to Respond No 12/17/2024 OASIS B1300: Health Literacy Answer Nikolas e Recorded Frequency of needing help to read materials from doctor or pharmacy Often 12/17/2024 [facility] Utilities Answer Date Recorded In the past 12 months has [employer], oil, or water [employer] threatened to shut off services in your [...] 02/21/2024 How often do you attend chur or restorationist services? More than 4 times per year 02/21/2024 Do you belong to any clubs o r organizations such as rastafari groups, unions, fraternal or athletic groups, or school groups? No 02/21/2024 How often do you attend meet ings of the clubs or organizations you belong to? Never 02/21/2024 Are you , , di vorced, , never , or living with a partner? 02/21/2024 AUDIT-C Answer Date Recorded Q1: How often do you have a drink containing alcohol? Never 11/16/2024 Q2: How many drinks containi ng alcohol do you have on a typical day when you are drinking? Patient does not drink 05/19/202 5 Q3: How often do you have si x or more drinks on one occasion? Never 11/16/2024 Overall Financial Resource Strain (CARDIA) Answe r [...] any time in the past [facility], were you homeless or living in a long term (including now)? No 02/21/2024 Sex and Gender Information Value Date Recorded Sex Assigned at Not on file Legal Sex Male 1:27 PM REFERENCE DATA EXPERT Gender Identity Not on file Sexual Orientation Not on file Obstetrics History Last Filed Vital Signs Vital Sign Reading Time Taken Comments Blood Pressure 116/74 12/21/2024 11:28 AM CDT Pulse 55 12/21/2024 11:28 AM CDT Temperature 36.7 C (98.1 F) 12/17/2024 2:22 PM CDT Respiratory Rate 18 12/17/2024 2:22 PM CDT Oxygen Saturation 98% 12/17/2024 2:22 PM CDT Inhaled Oxygen Concentration - - Weight 84.8 kg (187 lb) 12/21/2024 11:28 AM CDT Height 177.8 cm (5' 10) 12/21/2024 11:28 AM CDT Body Mass Index 26.83 12/21/2024 11:28 AM CDT Plan of Treatment Health Maintenance Due Date Last Done Comments DTaP/Tdap/Td Vaccine (1 - Tdap) 01/02/1956 Hepatitis B Screening 1963 Fall Risk Assessment 02/10/2025 02/11/2024, 09/09/2023, 11/29/2021, Additional history exists Well Visit 65+ 02/10/2025 02/11/2024, 03/2022, 01/14/2019 Influenza Vaccine (#1) 2025 03/31/2022, 2018 Depression Screening 09/16/2025 09/16/2024, 04/13/2024, 02/11/2024, Additional history exists Pneumococcal vaccine 65+ Completed 06/16/2015, 07/01 Zoster Vaccine Completed 06/28/2020, 03/31, 07/16/2012 Goals Goal Patient Goal Type Associated Problems Recent Progress Patient-Stated? Author ACO SW Goal - Level of ADL/IADL assistance will meet patient's needs ACO Care Management On track(2023 11:01 AM CDT) Yovana Ortiz, SPINNING AND WINDING SUPERVISOR Note: Problem: Inadequate assistance to manage ADL's/IADL's [...] Procedure Name Priority Date/Time Associated Diagnosis Comments XR HAND LEFT 3 OR MORE VIEWS Schedule Routine, Read Routine (OP Routine) 11/16/2024 2:03 PM CDT Left hand pain from Last 3 Months Results * XR Hand Left 3+ Vw (11/16/2024 2:03 PM CDT) Anatomical Region Laterality Modality Upper Extremities, Hand Left Computed Radiography 11/19/2024 10:3 6 AM CDT Narrative 11/19/2024 10:37 AM CDT EXAM DESCRIPTION: XR HAND LEFT 3 OR MORE VIEWS REASON FOR STUDY: left hand pain for months Lt hand swollen and painful x 1 mth, NKI FINDINGS: Three views of the left hand are submitted for interpretation. No prior examination is available for comparison. Severe basal joint thumb and mild proximal and distal interphalangeal joints fingers osteoarthritis. Soft tissue swelling about the left hand. No fracture. IMPRESSION: Polyarticular left hand osteoarthritis, greatest and severe at the basal joint of the thumb. Nonspecific left hand soft tissue swelling. THIS IS AN ELECTRONICALLY VERIFIED FINAL REPORT 11/19/2024 10:37 AM - Electronically signed by Nathan Jean M.D. T: Report ID: [id number] Reading Location: [id number] Procedure Note Nathan Jean MD - 11/19/2024 EXAM DESCRIPTION: XR HAND LEFT 3 OR MORE VIEWS REASON FOR STUDY: left hand pain for months Lt hand swollen and painful x 1 mth, NKI FINDINGS: Three views of the left hand are submitted for interpretation.No prior examination is available for comparison. Severe basal joint thumband mild proximal and distal interphalangeal joints fingers osteoarthritis.Soft tissue swelling about the left hand. No fracture. IMPRESSION: Polyarticular left hand osteoarthritis, greatest and severe at the basal joint of the thumb. Nonspecific left hand soft tissue swelling. THIS IS AN ELECTRONICALLY VERIFIED FINAL REPORT 11/19/2024 10:37 AM - Electronically signed by Nathan Jean M.D. T: Report ID: [id number] Reading Location: [id number] Arabella Escalante IM XR PROCEDURES Final Result from Last 3 Months Insurance MEDICARE [facility] MEDICARE [employer] Care Teams Launch Check Out Relationship Specialty Start Date End Date Eren Bojorquez MD PCP - General Family Medicine 12/17/18
--- OUTSIDE RECORDS SUMMARY | 2025-01-24 23:37 | XMS_ITS | Data Portability ---
Author Organization [facility], Main Office Address [address] [place] [address] Care Team Providers Care Liquefied Petroleum Gasfitter Name Role Phone PATY LAU Primary Care Provider PATY Workman Referring Provider Unavailable Assessment Encounter Date Assessment Date Assessment LastModified by Organization Details LastModified Time 03/28/2023 03/28/2023 This note is dictated and transcribed by [employer]. Data Programmer variances may occur. Despite proofreading, typographical errors may occur. [email or web address] Not available 04/01/2023 08:52:10 Plan of Treatment [...] By Organization Details Last Modified Time 03/28/2023 [id number] [email or web address]: care instructions [email or web address] Not available 04/01/2023 08:52:32 Reason for Referral None Reported. Problems Name Problem SNOMED Code Status Onset Date Resolution Date Notes Provider Name and Address Organization Details Recorded Time Pain in toe 179114801 Active 2020 Not Available [facility] 3 23:09:53 Paronychia of toe of right foot 8383780991370 9102 Active 2020 Not Available [facility] 3 23:09:53 Dystrophia unguium 27547934 Active 2022 Callum Grove DPM [address] [address], [place], [address] , [facility] 3 15:41:16 Ingrowing toenail 964533573 Active 2022 Callum Grove DPM [address], [place], [address] , [employer] [facility] [employer] [facility] 17:17:43 Notes:COPD, PROSTATE ISSUES Problem Notes None recorded. Procedures Surgical History Date Name Laterality Status Provider Name and Address Organization Details Recorded Time 03/28/20 23 Nail Debridement completed Callum Grove DPM [address], [address], [place], [address], [employer] [facility] [employer] [facility] 03/28/2023 17:17:36 02/19/20 Nail Debridement completed Callum Grove DPM [address], [address], [place], [address], [employer] [facility] 02/18/2023 14:50:05 cholecystectomy completed Not Available [facility] 08/29/2022 23:06:40 Imaging Results None recorded. Procedure Notes None recorded. Medical Equipment None Reported. Allergies Allergen ID Allergen Name Allergen Category Reaction Reaction Severity Criticality Documentation Date Start Date Code Code System Note Provider Name and Address Organization Details Recorded Time 31608 Levaquin medicatio n Not available Not available Not available 08/29/2022 10130 2 RxNorm Not Available [facility] 23:13:15 Medications Name Sig Start Date [...] Date Recorded Body height Heart rate Systolic And Diastolic Provider Name and Address Organization Details Last Updated DateTime 10/19/2021 177.8 cm 70 /min 121/70 mm[Hg] Not Available [facility] 08/29/2022 23:08:34 Date Recorded Body height Provider Name an d Address Organization Details Last Updated DateTime 10/26/2021 177.8 cm Not Available [facility] 3 23:08:34 Date Recorded Body height Oxygen saturation Oxygen saturation in Arterial blood by Pulse oximetry Heart rate Systolic And Diastolic Provider Name and Address Organization Details Last Updated DateTime 2 177.8 cm 95 % 95 % 74 /min 112/68 mm[Hg] Not Available [facility] 3 23:08:34 Date Recorded Heart rate Respiratory rate Oxygen saturation Oxygen saturation in Arterial blood by Pulse oximetry Systolic And Diastolic Provider Name and Address Organization Details Last Updated DateTime 3 58 /min 14 /min 97 % 97 % 119/71 mm[Hg] Gisselle Baird [place] [facility] 3 12:14:20 Date Recorded Heart rate Respiratory rate Oxygen saturation Oxygen saturation in Arterial blood by Pulse oximetry Systolic And Diastolic Provider Name and Address Organization Details Last Updated DateTime 3 69 /min 14 /min 97 % 97 % 118/65 mm[Hg] Gisselle Baird [place] [facility] 3 17:04:37 Social History None recorded. Functional Status Question Answer Note LastModified by Organizat ion Details LastModified Time What is your level of alcohol consumption? None [id number] Information not available 08/29/2022 Mental Status None recorded. Family History Nothing Reported. Medical History No medical history recorded. Past Encounters Encounter ID Performer Location Encounter Start Date Encounter Closed Date Diagnosis/Indication Diagnosis SNOMED-CT Code Diagnosis ICD10 Code Diagnosis Note [id number] Callum Grove DPM [facility] [place] [address] [place] [phone] 12/29/2020 00:00:00 12/29/2020 13:46:04 [id number] Callum Grove DPM [facility] [place] [address] [place] [address] 05/16/2021 00:00:00 05/16/2021 13:09:48 [id number] Callum Grove DPM [facility] [place] [address] [place] [phone] 10/19/2021 00:00:00 10/19/2021 14:44:42 [id number] Callum Grove DPM [facility] [place] [address] [place] [phone] 10/26/2021 00:00:00 10/26/2021 14:10:43 [id number] Callum Grove DPM [facility] [place] [address] [place] [address] 01/18/2022 00:00:00 01/18/2022 15:09:15 [id number] Callum Grove DPM [facility] [place] [address] [facility] [address] [place] [address] 02/18/2023 12:07:45 02/27/2023 17:01:48 Dystrophia unguium 93977224 L60.3 Nails 1 through 10 were debrided with sharp mechanical debridemen t without incident. Nails were debrided and greater than 50% length and thickness where needed. Unable to cut own toenails [id number] Z74.1 [id number] Callum Grove DPM [facility] [place] [address] [place] [address] 03/28/2023 16:52:15 04/02/2023 10:29:21 Pain in toe 607161037 M79.674 as above Ingrowing toenail 416521 009 L60.0 right great toenail, lateral borderSlan [...] Recorded Advance Directives Directive None Recorded Payers Insurance Date Sequence Insurance Name Policy Number Policy Jean Covered Member ID Jean Member ID Guarantor Name 03/28/2023 1 [place] Aldo Reza [id number] Aldo Reza 08/29/2022 2 [employer] (MEDICARE SUPPLEMENT) PLAN G Aldo Reza [id number] Aldo Reza Notes Date Note Type Note [...] complaints. Callum Grove DPM [address], [facility] [address], [place], [address], [employer] 02/27/2023 15:43:52 03/28/2023 text/html . Patient is [...] other complaints. Callum Grove DPM [address], [facility] [address], [place], [address], [employer] 04/01/2023 08:53:20
--- OUTSIDE RECORDS SUMMARY | 2025-01-24 23:37 | XMS_ITS | Encounter Summary ---
Author Organization [facility] Address [address] [place] [address] Care Team Providers Care Crackling Press Operator Name Role Phone Eren Bojorquez MD Primary Care Provider [phone] Yovana GarciaW Unavailable [phone] Nani Colin RN Unavailable [phone] Encounter Details Date Type Department Care Team (Late st Contact Info) Description 01/24/2018 Orders Only [facility] Health Information Management [address] [place] [address] Scanning, Provider Social History Tobacco Use Types Packs/Day Years Used Date Smoking Tobacco: Never Alcohol Use Standard Drinks/Week Comments No 0 (1 standard drink = 0.6 oz pur e alcohol) Sex and Gender Information Value Date Recorded Sex Assigned at Not on file Legal Sex Male 1:27 PM NUCLEAR EQUIPMENT TEST ENGINEER Gender Identity Not on file Sexual Orientation Not on file documented as of this encounter Plan of Treatment Not on file documented as of this encounter Procedures Procedure Name Priority Date/Time Associated Diagnosis Comments SCAN - RADIOLOGY/IMAGING 01/24/2018 documented in this encounter Results * SCAN - RADIOLOGY/IMAGING (01/24/2018) Anatomical Region Laterality Modality Other us Provider Scanning Final Result documented in this encounter Visit Diagnoses Not on filedocumented in this encounter Additional Health Concerns Infection Onset Date Last Indicated Resolved Time COVID: Suspected 09/16/2024 09/16/2024 09/16/2024 11:06 AM CDT documented as of this encounter Care Teams Crackling Press Operator Relationship Specialty Start Date End Date Eren Bojorquez MD PCP - General Family Medicine 12/17/18 Yovana Garcia, SPECIAL EDUCATION INCLUSION TEACHER [address] [facility] [place], [place] [id number] Grain Sampler 02/13/24 02/20/24 Nani Colin, JAREK [address] [place] [address] [address] [place] [address] Transformation Architect 02/13/24 07/06/24 documented as of this encounter
--- OUTSIDE RECORDS SUMMARY | 2025-01-24 23:37 | XMS_ITS | Referral Summary ---
Author Organization [facility] [address] Address [address] [place] [address] Care Team Providers Care Asphalt Dauber Name Role Phone Eren Bojorquez MD Primary Care Provider [phone] Encounters Date Type Department Care Team Description 12/30/2024 Nurse Triage [facility] Medical Group Family Medicine at [address] [place] [phone] Eren Bojorquez MD 12/21/2024 11:30 AM CDT Office Visit [facility] [address] [place] [address] [address] [place] [address] Irma Ni NP Lewy body dementia with behavioral disturbance (HCC) (Primary Dx); Parkinson's disease without dyskinesia or fluctuating manifestations (HCC) 12/17/2024 2:00 PM CDT Home Care Visit [address] [address] [address] [place] [address] Yeimy Rodriguez, OT OT OASIS DISCHARGE 12/15/2024 3:00 PM CDT Home Care Visit [address] [place] [address] Ayesha Avila, SHIP PILOT SHIP PILOT DISCIPLINE DISCHARGE 12/15/2024 2:30 PM CDT Home Care Visit [address] [place] [address] Yeimy Rodriguez, OT OT HOME VISIT 12/14/2024 Home Care Visit [address] [place] [address] Ayesha West, PT PT DISCIPLINE DISCHARGE 12/14/2024 1:00 PM CDT Home Care Visit [address] [place] [address] Ayesha West, PT PT REASSESSMENT 12/11/2024 2:00 PM CDT Home Care Visit [address] [place] [address] Ayesha West, PT PT HOME VISIT 12/10/2024 2:00 PM CDT Home Care Visit [address] [place] [address] Yeimy Rodriguez, OT OT HOME VISIT 12/08/2024 2:30 PM CDT Home Care Visit [address] [place] [address] Yeimy Rodriguez, OT OT HOME VISIT 12/07/2024 1:00 PM CDT Home Care Visit [address] [place] [address] Ayesha Avila, SHIP PILOT SHIP PILOT HOME VISIT 12/04/2024 3:30 PM CDT Home Care Visit [address] [place] [address] Nani Allen, UNIFORM DESIGNER PT HOME VISIT 12/03/2024 2:00 PM CDT Home Care Visit [address] [place] [address] Yeimy Rodriguez, OT OT REASSESSMENT 12/02/2024 2:00 PM CDT Home Care Visit [address] [place] [address] Ayesha Avila SHIP PILOT SHIP PILOT REASSESSMENT 12/01/2024 2:00 PM CDT Home Care Visit [address] [place] [address] Yeimy Rodriguez, OT OT HOME VISIT 11/30/2024 2:00 PM CDT Home Care Visit [address] [place] [address] Bea-Acjyoti inAyesha, SHIP PILOT SHIP PILOT HOME VISIT 11/27/2024 3:00 PM CDT Home Care Visit [address] [place] [address] Nani Allen, UNIFORM DESIGNER PT HOME VISIT 11/26/2024 2:00 PM CDT Home Care Visit [address] [place] [address] Jeri inAyesha, SHIP PILOT SHIP PILOT HOME VISIT 11/25/2024 Documentation [facility] Medical [facility] Care [address] [place] [address] Gina Orozco PRINT SHOP STENOGRAPHER 11/25/2024 Telephone [facility] Family Medicine at [address] [place] [address] Eren Bojorquez MD After Hours 11/24/2024 2:00 PM CDT Home Care Visit [address] [place] [address] Jeri inAyesha, SHIP PILOT SHIP PILOT HOME VISIT 11/20/2024 9:00 AM CDT Home Care Visit [address] [place] [address] Ayesha West, PT PT REASSESSMENT 11/20/2024 3:45 PM CDT Home Care Visit [address] [place] [address] Autumn Young COTA OT HOME VISIT 11/19/2024 Results Follow-Up [facility] Medical [facility] Family Medicine at [address] [place] [address] Arabella España PA XR Hand Left 3+ Vw 11/19/2024 3:00 PM CDT Home Care Visit [address] [place] [address] Autumn Young COTA OT HOME VISIT 11/18/2024 3:00 PM CDT Home Care Visit [address] [place] [address] Nani Allen PTA PT HOME VISIT 11/17/2024 12:45 PM CDT Home Care Visit [address] [address] [place] [address] Ayesha Avila SLP SHIP PILOT HOME VISIT 11/16/2024 1:59 PM CDT - 11/16/2024 11:59 PM CDT Hospital Encounter [facility] [address] [place] [address] Left hand pain Discharge Disposition: Discharge to home or self care 11/16/2024 1:15 PM CDT Office Visit [facility] Medicine at [address] [place] [address] Arabella España PA Left hand pain (Primary Dx) 11/12/2024 12:15 PM CDT Home Care Visit [address] [place] [address] Ayesha Avila SLP SHIP PILOT HOME VISIT 11/11/2024 2:00 PM CDT Home Care Visit [address] [address] [address] [place] [address] Yeimy Rodriguez, SHRUTHI OT REASSESSMENT 11/11/2024 2:00 PM CDT Home Care Visit [address] [address] [place] [address] Nani Allen, KALPANA PT HOME VISIT 11/10/2024 4:00 PM CDT Home Care Visit [address] [place], [place] [address] Ayesha Avila, SHIP PILOT SHIP PILOT HOME VISIT 11/09/2024 9:30 AM CDT Home Care Visit [address] [place] [address] Yeimy Rodriguez, OT OT HOME VISIT 11/06/2024 3:00 PM CDT Home Care Visit [address] [place] [address] Nani Allen, UNIFORM DESIGNER PT HOME VISIT 11/05/2024 9:30 AM CDT Home Care Visit [address] [place] [address] Yeimy Rodriguez, OT OT HOME VISIT 11/04/2024 1:00 PM CDT Home Care Visit [address] [place] [address] Ayesha Avila, SHIP PILOT SHIP PILOT INITIAL EVALUATION 11/04/2024 Telephone [facility] Medical Group Family Medicine at [address] [place] [address] Eren Bojorquez MD contiued therapy 11/03/2024 Home Care Visit [address] [place] [address] Ayesha West, PT CARE CONFERENCE 11/02/2024 9:00 AM CDT Home Care Visit [address] [place] [address] Ayesha West, PT PT HOME VISIT 11/02/2024 10:30 AM CDT Home Care Visit [address] [place] [address] Yeimy Rodriguez, OT OT INITIAL EVALUATION 10/30/2024 Home Care Visit [address] [place] [address] Margo Gay, RN NURSE MED RECON FOR THERAPY 10/29/2024 Home Care Visit [address] [place] [address] Margo Gay, RN NURSE MED RECON FOR THERAPY 10/28/2024 Home Care Visit [address] [place] [address] Yeimy Rodriguez, OT CASE COMMUNICATION 10/28/2024 Home Care Visit [address] [place] [address] Margo Gay, RN NURSE MED RECON FOR THERAPY 10/27/2024 Plan of Care Documentation [address] [place] [address] 10/27/2024 10:00 AM CDT Home Care Visit [address] [place] [address] Ayesha West, PT PT OASIS START OF CARE 10/26/2024 Home Care Visit [address] [place] [address] Margo Gay, RN TELEPHONE ENCOUNTER 10/26/2024 Telephone [facility] Medical Group Family Medicine at [address] [place] [address] Eren Bojorquez MD Medical Question/Miscellaneou s from Last 3 Months Allergies Active Allergy [...] itamin C Deficiency Rx: Vitamin C Active qhkxt-1-njz-epa-dpa -fish oil 1,050-1,200 mg capsuleIndications: hypertriglyceridemi a Rx: [place] 3 Active multivit with min-folic acid 200 [...] 08/12/2024 Assessment & Plan (08/12/2024 12:09 PM ELECTRICAL CONTINUITY TESTER): Slow progression Continue trazodone 50mg HS to help with sleep No elopement or behavior concerns at this time Neuropathy 08/12/2024 Assessment & Plan (08/12/2024 12:10 PM ELECTRICAL CONTINUITY TESTER): Not at goal Possibly worsened by Parkinson's [...] months Assessment & Plan (08/12/2024 12:09 PM ELECTRICAL CONTINUITY TESTER): Not at goal Encourage to schedule follow [...] use Can trial exercises classes on [employer] channel as tolerated NPT today Follow-up in 4 months Assessment & Plan (02/11/2024 12:46 PM CDT): Progressive, worsening Continue working with PT/OT Home health and ACO referrals Keep f/u with [facility] Assessment & Plan (01/08/2024 11:52 AM [...] may discontinue trazodone. He will see our PRINT SHOP STENOGRAPHER in 3 months and at that time [...] necessary in Parkinson disease. He sees a public health sanitarian technician who is attempting some heavy metal chelation though I do not have labs that show he has high heavy metals. Lewy body dementia with behavioral disturbance 0 01/08/2024 Assessment & Plan (02/11/2024 12:46 PM CDT): Progressive, worsening Continue working with PT/OT Home health and ACO referrals Keep f/u with [facility] clinic Weakness 09/09/2023 Assessment & Plan (02/11/2024 12:46 PM CDT): Progressive, worsening Continue working with PT/OT Home health and ACO referrals Keep f/u with [facility] clinic Assessment & Plan (11/07/2023 12:19 PM [...] Worsening, progressive PT/OT referral to [facility] in [place] Advise to maintain independence and continue moving [...] 02/04/2019 Assessment & Plan (08/12/2024 12:08 PM ELECTRICAL CONTINUITY TESTER): Stable Lab Results Component Value Date CHOL [...] 12:44 PM CDT): Chronic Keep appt with driller's assistant on 05/21/24 Continue ASA 81mg, HCTZ 12.5mg Labs ordered Chronic diastolic heart failure 02/01/2015 Assessment & Plan (08/12/2024 12:08 PM ELECTRICAL CONTINUITY TESTER): Stable edema, asymptomatic otherwise Continue HCTZ 12.5mg [...] materials from doctor or pharmacy Often 12/17/2024 C Utilities Answer Date Recorded In the past 12 months has th e electric, gas, oil, or water [employer] threatened to shut off services in your [...] often do you attend chur ch or islam services? More than 4 times per year 02/21/2024 Do you belong to any clubs o r organizations such as lutheran groups, unions, fraternal or athletic groups, or [...] any time in the past 12 m [facility], were you homeless or living in a residential (including now)? No 02/21/2024 Sex and Gender Information Value Date Recorded Sex Assigned at Not on file Legal Sex Male 1:27 PM ELECTRICAL CONTINUITY TESTER Gender Identity Not on file Sexual Orientation [...] 12/21/2024 11:28 AM CDT Plan of Treatment Not on file Goals Goal Patient Goal Type Associated Problems Recent Progress Patient-Stated? Author ACO SW Goal - Level of ADL/IADL assistance will meet patient's needs ACO Care Management On track(2023 11:01 AM CDT) No Yovana Garcia, MACHINE ADJUSTER Note: Problem: Inadequate assistance to manage ADL's/IADL's [...] by Nathan Jean M.D. T: Report ID: [id number] Reading Location: [id number] Procedure Note Nathan Jean MD - 11/19/2024 [...] by Nathan Jean M.D. T: Report ID: [id number] Reading Location: [place] [address] Arabella Escalante IMG XR PROCEDURES Final Result from Last 3 Months Insurance MEDICARE [employer] MEDICARE [employer] MEDICARE [employer] Care Teams Asphalt Dauber Relationship Specialty Start Date End Date Eren Bojorquez MD PCP - General Family Medicine 12/17/18
--- OUTSIDE RECORDS SUMMARY | 2025-01-24 23:37 | XMS_ITS | Encounter Summary ---
Author Organization [facility] Care Team Providers Care Laborer Tree Tapping Name Role Phone Eren Bojorquez MD Primary Care Provider [phone] Yovana GarciaW Unavailable [phone] Nani Cloin RN Unavailable [phone] Encounter Details Date Type Department Care Team (Latest Contact Info) Description 09/02/2018 Orders Only [facility] ProviderRicardo MD [address] [place] [address] Social History Tobacco Use Types Packs/Day Years Used Date Smoking Tobacco: Never Smokeless Tobacco: Never Alcohol Use Standard Drinks/Week Comments No 0 (1 standard drink = 0.6 oz pur e alcohol) Sex and Gender Information Value Date Recorded Sex Assigned at Not on file Legal Sex Male 1:27 PM BEER RUNNER Gender Identity Not on file Sexual Orientation Not on file documented as of this encounter Plan of Treatment Not on file documented as of this encounter Procedures Procedure Name Priority Date/Time Associated Diagnosis Comments SCAN - LABS 09/03/2018 12:00 AM BEER RUNNER documented in this encounter Results * SCAN - LABS (09/03/2018 12:00 AM BEER RUNNER) Narrative 09/03/2018 12:00 AM BEER RUNNER Ordered by an unspecified provider. Historical Provider Final Res ult documented in this encounter Visit Diagnoses Not on filedocumented in this encounter Additional Health Concerns Infection Onset Date Last Indicated Resolved Time COVID: Suspected 09/16/2024 09/16/2024 09/16/2024 11:06 AM CDT documented as of this encounter Care Teams Laborer Tree Tapping Relationship Specialty Start Date End Date Eren Bojorquez MD PCP - General Family Medicine 12/17/18 Yovana Garcia, MIREYA [address] [place] [address] Clinical Pharmacy Specialist 02/13/24 02/20/24 Nani Colin RN [address] [place], [place] [address] [address] Tree Tapping Laborer 02/13/24 07/06/24 documented as of this encounter
--- OUTSIDE RECORDS SUMMARY | 2025-01-24 23:37 | XMS_ITS | Encounter Summary ---
Author Organization [facility] Healthcare Address [address] [place] [address] Care Team Providers Care Buy Boat Operator Name Role Phone Eren Bojorquez MD Primary Care Provider [phone] Yovana GarciaW Unavailable [phone] Nani Colin RN Unavailable [phone] Encounter Details Date Type Department Care Team (Late st Contact Info) Description 09/10/2016 [place] Only [facility] [place] [facility] [place] [address] [place] [id number] Scanning, Provider Social History Tobacco Use Types Packs/Day Years Used Date Smoking Tobacco: Never Alcohol Use Standard Drinks/Week Comments No 0 (1 standard drink = 0.6 oz pur e alcohol) Sex and Gender Information Value Date Recorded Sex Assigned at Not on file Legal Sex Male 1:27 PM [facility] Gender Identity Not on file Sexual Orientation Not on file documented as of this encounter Plan of Treatment Not on file documented as of this encounter Procedures Procedure Name Priority Date/Time Associated Diagnosis Comments SCAN - RADIOLOGY/IMAGING 09/10/2016 documented in this encounter Results * SCAN - RADIOLOGY/IMAGING (09/10/2016) Anatomical Region Laterality Modality Other us Provider Scanning Final Result documented in this encounter Visit Diagnoses Not on filedocumented in this encounter Additional Health Concerns Infection Onset Date Last Indicated Resolved Time COVID: Suspected 09/16/2024 09/16/2024 09/16/2024 11:06 AM CDT documented as of this encounter Care Teams Buy Boat Operator Relationship Specialty Start Date End Date Eren Bojorquez MD PCP - General Family Medicine 12/17/18 Yovana Garcia, ORDNANCE OFFICER [address] [facility] [place], [place] [id number] Elevator Runner 02/13/24 02/20/24 Nani Colin, JAREK [address] [place] [address] [address] [place] [address] Fruit Stuffer 02/13/24 07/06/24 documented as of this encounter
--- OUTSIDE RECORDS SUMMARY | 2025-01-24 23:37 | XMS_ITS | Encounter Summary ---
Author Organization [facility] Facility Care Team Providers Care Bias Cutting Machine Operator Vertical Name Role Phone Eren Bojorquez MD Primary Care Provider [phone] Yovana GarciaW Unavailable [phone] Nani Colin RN Unavailable [phone] Encounter Details Date Type Department Care Team (Latest Contact Info) Description 07/30/2018 Orders Only [facility] ProviderRicardo MD [address] [place] [id number] Social History Tobacco Use Types Packs/Day Years Used Date Smoking Tobacco: Never Smokeless Tobacco: Never Alcohol Use Standard Drinks/Week Comments No 0 (1 standard drink = 0.6 oz pur e alcohol) Sex and Gender Information Value Date Recorded Sex Assigned at Not on file Legal Sex Male 1:27 PM YARD DRIVER Gender Identity Not on file Sexual Orientation Not on file documented as of this encounter Plan of Treatment Not on file documented as of this encounter Procedures Procedure Name Priority Date/Time Associated Diagnosis Comments PROCEDURE - RESULT 07/30/2018 12 :00 AM YARD DRIVER documented in this encounter Results * PROCEDURE - RESULT (07/30/2018 12:00 AM YARD DRIVER) Narrative 07/30/2018 12:00 AM YARD DRIVER Ordered by an unspecified provider. Historical Provider Final Res ult documented in this encounter Visit Diagnoses Not on filedocumented in this encounter Additional Health Concerns Infection Onset Date Last Indicated Resolved Time COVID: Suspected 09/16/2024 09/16/2024 09/16/2024 11:06 AM CDT documented as of this encounter Care Teams Bias Cutting Machine Operator Vertical Relationship Specialty Start Date End Date Eren Bojorquez MD PCP - General Family Medicine 12/17/18 Yovana Garcia, MIREYA [address] [facility] [place] [address] Pool Table Mechanic 02/13/24 02/20/24 Nani Colin RN [address] [facility] [facility] [address] [place], [place] [address], [place] [address] Petroleum Geology Faculty Member 02/13/24 07/06/24 documented as of this encounter
--- OUTSIDE RECORDS SUMMARY | 2025-01-24 23:37 | XMS_ITS | Clinical Summary ---
Author Organization [facility] Address [address] [place] [address] Phone Care Team Providers Care Aquatics Assistant Department Head Name Role Phone Unavailable Primary Care Provider [...]
--- OUTSIDE RECORDS SUMMARY | 2025-01-24 23:37 | XMS_ITS | Continuity of Care Document ---
Author Organization [facility] [place] Address [address] [place] [address] Phone Care Team Providers Care Bankruptcy Legal Assistant Name Role Phone Wild PT,MPT,ATC, Pritesh Unavailable Unavai lable Procedures Procedure Date Therapeutic Activities Therapeutic Activities Therapeutic Activities Therapeutic Activities Therapeutic Activities Therapeutic Activities Therapeutic Activities Therapeutic Activities Doc neg elder mal no plan Identified as not an unhealthy alcohol u ser Not identified as unhealthy alcohol via screening OT Evaluation Low Complexity Therapeutic Activities Doc neg elder mal no plan PT Evaluation High Complexity Therapeutic Activities Therapeutic Activities Therapeutic Activities Therapeutic Activities Progress Note Therapeutic Activities Therapeutic Activities Therapeutic Activities Manual Therapy Therapeutic Activities Therapeutic Activities Therapeutic Activities Therapeutic Activities Therapeutic Activities Therapeutic Activities Therapeutic Activities Therapeutic Activities Therapeutic Activities Therapeutic Activities Therapeutic Activities Therapeutic Activities Progress Note Therapeutic Activities Therapeutic Activities Therapeutic Activities Doc neg elder mal no plan Identified as not an unhealthy alcohol u ser Not identified as unhealthy alcohol via screening Progress Note Therapeutic Activities Progress Note Therapeutic Activities Therapeutic Activities Therapeutic Activities Therapeutic Activities Therapeutic Activities Therapeutic Activities Therapeutic Activities Therapeutic Activities Therapeutic Activities Therapeutic Activities Therapeutic Activities Therapeutic Activities Therapeutic Activities Therapeutic Activities Therapeutic Activities Therapeutic Activities Therapeutic Activities Progress Note Therapeutic Activities Progress Note Therapeutic Activities Therapeutic Activities Therapeutic Activities Progress Note Therapeutic Activities Neuromuscular Re-Ed Therapeutic Activities Therapeutic Activities Therapeutic Activities Therapeutic Activities Therapeutic Activities Therapeutic Activities Therapeutic Activities Therapeutic Activities Therapeutic Activities Therapeutic Activities Therapeutic Activities Therapeutic Activities Therapeutic Activities Therapeutic Activities Therapeutic Activities Therapeutic Activities Progress Note Therapeutic Activities Therapeutic Activities Therapeutic Activities Therapeutic Activities Progress Note Therapeutic Activities Therapeutic Activities Therapeutic Activities Therapeutic Activities Therapeutic Activities Therapeutic Activities Therapeutic Activities Therapeutic Activities Therapeutic Activities Neuromuscular Re-Ed Therapeutic Activities Therapeutic Activities Neuromuscular Re-Ed Therapeutic Activities Neuromuscular Re-Ed Therapeutic Activities Therapeutic Activities Therapeutic Activities Neuromuscular Re-Ed Therapeutic Exercise Therapeutic Activities Progress Note Therapeutic Activities Progress Note Therapeutic Activities Neuromuscular Re-Ed Therapeutic Activities Therapeutic Activities Neuromuscular Re-Ed Therapeutic Activities Neuromuscular Re-Ed Therapeutic Activities Therapeutic Activities Therapeutic Activities Neuromuscular Re-Ed Therapeutic Activities Therapeutic Activities Neuromuscular Re-Ed Therapeutic Activities Neuromuscular Re-Ed Therapeutic Activities Therapeutic Activities Therapeutic Activities Therapeutic Activities Neuromuscular Re-Ed Therapeutic Activities Therapeutic Activities Therapeutic Activities Progress Note Therapeutic Activities Neuromuscular Re-Ed Progress Note Therapeutic Activities Therapeutic Activities Therapeutic Activities Neuromuscular Re-Ed Therapeutic Activities Therapeutic Activities Neuromuscular Re-Ed Therapeutic Activities Therapeutic Activities Neuromuscular Re-Ed Therapeutic Activities Therapeutic Activities Neuromuscular Re-Ed Therapeutic Activities Therapeutic Activities Neuromuscular Re-Ed Therapeutic Activities Therapeutic Activities Therapeutic Activities Therapeutic Activities Therapeutic Activities Therapeutic Activities Doc neg elder mal no plan PT Evaluation Moderate Complexity Therapeutic Activities Doc neg elder mal no plan Identified as not an unhealthy alcohol u ser Not identified as unhealthy alcohol via screening Identified as not an unhealthy alcohol u ser Not identified as unhealthy alcohol via screening Identified as not an unhealthy alcohol u ser Not identified as unhealthy alcohol via screening OT Evaluation Low Complexity Therapeutic Activities Therapeutic Activities Neuromuscular Re-Ed Therapeutic Exercise Therapeutic Activities Therapeutic Exercise Neuromuscular Re-Ed Therapeutic Activities Neuromuscular Re-Ed Therapeutic Exercise PT Evaluation High Complexity Neuromuscular Re-Ed Therapeutic Activities Advance Directives Directive Yes / No Effective Date File Name No Information Encounters Encounter Description Practice Location Reason(s) For Visit Diagnoses Date Provider Providers [facility], [place], [place], [id number], [place] tel:[phone] [place] No Information ADDISON Sheppard, [place]. [facility], [place], [place], [id number], tel:[phone] [place] No Information 5 Nadeem Gan. . Referring Provider: Eren Bojorquez, [address] [place], [address]. tel:[phone] [facility], [address], [place], [place], [address], [place] tel:[phone] [place] No Information 5 [place] Joey. . Referring Provider: Eren Bojorquez, [address] [place] [address], [place], [address]. tel:[phone] [facility], [address], [place], [place], [address], [place] tel:[phone] [place] No Information 5 Silver Elvia. . Referring Provider: Eren Bojorquez, [address] [place] [address], [place], [address]. tel:[phone] [facility], [facility] [address], [place], [place], [address], [place] tel:[phone] [place] No Information 5 [place] Joey. . Referring Provider: Eren Bojorquez, [address] [place] [address], [place], [address]. tel:[phone] [facility], [address], [place], [place], [address], [place] tel:[phone] [place] No Information 5 [place] Joey. . Referring Provider: Eren Bojorquez, [address] [place] [address], [place], [address]. tel:[phone] [facility], [address], [place], [place], [address], [place] tel:[phone] [place] No Information 5 Silver Elvia. . Referring Provider: Eren Bojorquez, [address] [place] [address], [place], [address]. tel:[phone] [facility], [address], [place], [place], [address], [place] tel:[phone] [place] No Information Sep-0 5 [place] Joey. . Referring Provider: Eren Bojorquez, [address] [place] [address], [place], [address]. tel:[phone] [facility], [facility] [address], [place], [place], [address], [place] tel:[phone] [place] No Information Sep-0 5 Silver Elvia. . Referring Provider: Eren Bojorquez, [address] [place] [address], [place], [address]. tel:[phone] [facility], [facility] [address], [place], [place], [address], [place] tel:[phone] [place] No Information Aug- 5 Silver Elvia. . Referring Provider: Eren Bojorquez, [address] [place] [address], [place], [address]. tel:[phone] [facility], [address], [place], [place], [address], [place] tel:[phone] [place] No Information 5 [facility] [place], [place]. Referring Provider: Eren Bojorquez, [address] [place] [address], [place], [address]. tel:[phone] [facility], [facility] [address], [place], [place], [address], [place] tel:[phone] [place] No Information Aug-2 5 [place] Joey. . Referring Provider: Eren Bojorquez, [address] [place] [address], [place], [address]. tel:[phone] [facility], [facility] [address], [place], [place], [address], [place] tel:[phone] [place] No Information 2 5 Silver Elvia. . Referring Provider: Eren Bojorquez, [address] [place] [address], [place], [address]. tel:[phone] [facility], [address], [place], [place], [address], [place] tel:[phone] [place] No Information Feb-2 0-202 5 [place] Joey. . Referring Provider: Eren Bojorquez, [address] [place] [address] [address], [place], [address]. tel:[phone] [facility] [address], [place], [place], [address], [place] tel:[phone] [place] No Information Feb-2 0-202 5 Silver Elvia. . Referring Provider: Eren Bojorquez, [address] [place] [address], [place], [address]. tel:[phone] [facility], [address], [place], [place], [address], [place] tel:[phone] [place] No Information Feb-1 -202 5 [place] Joey. . Referring Provider: Eren Bojorquez, [address] [place] [address], [place], [address]. tel:[phone] [facility], [address], [place], [place], [address], [place] tel:[phone] [place] No Information Feb-1 - 5 Silver Elvia. . Referring Provider: Eren Bojorquez, [address] [place] [address], [place], [address]. tel:[phone] [facility], [address], [place], [place], [address], [place] tel:[phone] [place] No Information Feb-0 5-202 5 [place] Joey. . Referring Provider: Eern Bojorquez, [address] [place] [address], [place], [address]. tel:[phone] [facility], [address], [place], [place], [address], [place] tel:[phone] [place] No Information Feb-0 5-202 5 Silver Elvia. . Referring Provider: Eren Bojorquez, [facility] [facility] [address], [place], [address]. tel:[phone] [facility], [facility] [address], [place], [place], [address], [place] tel:[phone] [place] No Information 5 [place] Joey. . Referring Provider: Eren Bojorquez, [address] [place] [address], [place], [address]. tel:[phone], [place], [place], [address], [place] tel:[phone] [place] No Information 5 Silver Elvia. . Referring Provider: Eren Bojorquez, [address] [place] [address], [place], [address]. tel:[phone] [facility] [address], [place], [place], [address], [place] tel:[phone] [place] No Information 5 [place] Joey. . Referring Provider: Eren Bojorquez, [address] [place] [address], [place], [address]. tel:[phone] [facility] [address], [place], [place], [address], [place] tel:[phone] [place] No Information 5 Silver Elvia. . Referring Provider: Eren Bojorquez, [address] [place] [address], [place], [address]. tel:[phone] [facility] [address], [place], [place], [address], [place] tel:[phone] [place] No Information 5 [place] Joey. . Referring Provider: Eren Bojorquez, [address] [place] [address], [place], [address]. tel:[phone] [facility], [address], [place], [place], [address], [place] tel:[phone] [place] No Information 5 Silver Elvia. . Referring Provider: Eren Bojorquez, [address] [place] [address] [address], [place], [address]. tel:[phone] [facility], [address], [place], [place], [address], [place] tel:[phone] [place] No Information 5 [place] Joey. . Referring Provider: Eren Bojorquez, [address] [place] [address], [place], [address]. tel:[phone] [facility], [address] [facility] [address], [place], [place], [address], [place] tel:[phone] [place] No Information 5 Silver Elvia. . Referring Provider: Eren Bojorquez, [address] [place] [address], [place], [address]. tel:[phone] [facility], [address], [place], [place], [address], [place] tel:[phone] [place] No Information 4 [place] Joey. . Referring Provider: Eren Bojorquez, [address] [place] [address] 160, [place], [address]. tel:[phone] [facility], [address], [place], [place], [address], [place] tel:[phone] [place] No Information 4 Silver Elvia. . Referring Provider: Eren Bojorquez, [address] [place] [address], [place], [address]. tel:[phone] [facility], [address], [place], [place], [address], [place] tel:[phone] [place] No Information 4 [place] Joey. . Referring Provider: Eren Bojorquez, [address] [place] [address], [place], [address]. tel:[phone] [facility], [facility] [address], [place], [place], [address], [place] tel:[phone] [place] No Information 4 Silver Levia. . Referring Provider: Eren Bojorquez, [address] [place] [address] 160, [place], [address]. tel:[phone] [facility] [address], [place], [place], [address], [place] tel:[phone] [place] No Information 4 Silver Elvia. . Referring Provider: Eren Bojorquez, [address] [place] [address], [place], [address]. tel:[phone] [facility], [address] [place] [address] [address], [place], [place], [address], [place] tel:[phone] [place] No Information 4 Silver Elvia. . Referring Provider: Eren Bojorquez, [address] [place] [address] 160, [place], [address]. tel:[phone] [facility] [address], [place], [place], [address], [place] tel:[phone] [place] No Information 0 4 Silver Elvia. . Referring Provider: Eren Bojorquez, [address] [place] [address] 160, [place], [address]. tel:[phone] [facility], [address] [place] [address] [address], [place], [place], [address], [place] tel:[phone] [place] No Information 0 4 Taran Cook. . Referring Provider: Eren Bojorquez, [address] [place] [address] 160, [place], [address]. tel:[phone] [facility], [address], [place], [place], [address], [place] tel:[phone] [place] No Information Oct-2 4 [place] Joey. . Referring Provider: Eren Bojorquez, [address] [place] [address] 160, [place], [address]. tel:[phone] [facility], [facility] [address], [place], [place], [address], [place] tel:[phone] [place] No Information Oct-2 4 Silver Elvia. . Referring Provider: Eren Bojorquez, [address] [place] [address] 160, [place], [address]. tel:[phone] [facility], [facility] [address], [place], [place], [address], [place] tel:[phone] [place] No Information Oct-2 4 [place] Joey. . Referring Provider: Eren Bojorquez, [address] [place] [address] 160, [place], [address]. tel:[phone] [facility], [facility] [address], [place], [place], [address], [place] tel:[phone] [place] No Information Oct-2 4 Silver Elvia. . Referring Provider: Eren Bojorquez, [address] [place] [address] 160, [place], [address]. tel:[phone] [facility], [address] [place] [address] [address], [place], [place], [address], [place] tel:[phone] [place] No Information Oct-2 4 Silver Elvia. . Referring Provider: Eren Bojorquez, [address] [place] [address] 160, [place], [address]. tel:[phone] [facility], [address] [place] [address] [address], [place], [place], [address], [place] tel:[phone] [place] No Information Oct-2 4 [place] Joey. . Referring Provider: Eren Bojorquez, [address] [place] [address] 160, [place], [address]. tel:[phone] [facility], [address], [place], [place], [address], [place] tel:[phone] [place] No Information 4 [place] Joey. . Referring Provider: Eren Bojorquez, [address] [place] [address] 160, [place], [address]. tel:[phone] [facility] [address], [place], [place], [address], [place] tel:[phone] [place] No Information 4 Silver Elvia. . Referring Provider: Eren Bojorquez, [address] [place] [address] 160, [place], [address]. tel:[phone] [facility], [address], [place], [place], [address], [place] tel:[phone] [place] No Information 4 Silver Elvia. . Referring Provider: Eren Bojorquez, [address] [place] [address] 160, [place], [address]. tel:[phone] [facility], [address], [place], [place], [address], [place] tel:[phone] [place] No Information 4 [place] Joey. . Referring Provider: Eren Bojorquez, [address] [place] [address] 160, [place], [address]. tel:[phone] [facility], [address], [place], [place], [address], [place] tel:[phone] [place] No Information 0 4 [place] Joey. . Referring Provider: Eren Bojorquez, [address] [place] [address] 160, [place], [address]. tel:[phone] [facility], [address], [place], [place], [address], [place] tel:[phone] [place] No Information Mar-0 4 Silver Elvia. . Referring Provider: Eren Bojorquez, [address] [place] [address] 160, [place], [address]. tel:[phone], [place], [place], [address], [place] tel:[phone] [place] No Information Oct-0 7-202 4 [place] Joey. . Referring Provider: Eren Bojorquez, [address] [place] [address] 160, [place], [address]. tel:[phone] [facility], [address] [place] [address] [address], [place], [place], [address], [place] tel:[phone] [place] No Information Oct-0 7-202 4 Silver Elvia. . Referring Provider: Eren Bojorquez, [address] [place] [address] 160, [place], [address]. tel:[phone], [place], [place], [address], [place] tel:[phone] [place] No Information Sep-3 0-202 4 Silver Elvia. . Referring Provider: Eren Bojorquez, [address] [place] [address], [place], [address]. tel:[phone] [facility], [facility] [address], [place], [place], [address], [place] tel:[phone] [place] No Information Sep-3 0-202 4 [place] Joey. . Referring Provider: Eren Bojorquez, [address] [place] [address] 160, [place], [address]. tel:[phone] [facility], [address] [place] [address] [address], [place], [place], [address], [place] tel:[phone] [place] No Information Sep-2 5-202 4 Giraldo David. . Referring Provider: Eren Bojorquez, [address] [place] [address] 160, [place], [address]. tel:[phone] [facility], [address], [place], [place], [address], [place] tel:[phone] [place] No Information Sep-2 4 Silver Elvia. . Referring Provider: Eren Bojorquez, [address] [place] [address] 160, [place], [address]. tel:[phone] [facility], [address], [place], [place], [address], [place] tel:[phone] [place] No Information Sep-2 4 Wild Prit[place]RAYNE, [place], [place]. Referring Provider: Eren Bojorquez, [address] [place] [address] 160, [place], [address]. tel:[phone] [facility], [facility] [address], [place], [place], [address], [place] tel:[phone] [place] No Information Sep-2 4 Blaine Sheela. . Referring Provider: Eren Bojorquez, [address] [place] [address] 160, [place], [address]. tel:[phone] [facility], [address], [place], [place], [address], [place] tel:[phone] [place] No Information Sep-1 4 [place] Joey. . Referring Provider: Eren Bojorquez, [address] [place] [address] 160, [place], [address]. tel:[phone] [facility], [facility] [address], [place], [place], [address], [place] tel:[phone] [place] No Information Sep-1 4 Silver Elvia. . Referring Provider: Eren Bojorquez, [address] [place] [address] 160, [place], [address]. tel:[phone] [facility], [address], [place], [place], [address], [place] tel:[phone] [place] No Information Sep-0 4 [place] Joey. . Referring Provider: Eren Bojorquez, [address] [place] [address] 160, [place], [address]. tel:[phone] [facility], [address], [place], [place], [address], [place] tel:[phone] [place] No Information Sep-0 4 Silver Elvia. . Referring Provider: Eren Bojorquez, [address] [place] [address] 160, [place], [address]. tel:[phone] [facility] [address], [place], [place], [address], [place] tel:[phone] [place] No Information Sep-0 4 [place] Joey. . Referring Provider: Eren Bojorquez, [address] [place] [address] 160, [place], [address]. tel:[phone] [facility], [address] [facility] [address], [place], [place], [address], [place] tel:[phone] [place] No Information Sep-0 4 Silver Elvia. . Referring Provider: Eren Bojorquez, [address] [place] [address] 160, [place], [address]. tel:[phone] [facility], [address], [place], [place], [address], [place] tel:[phone] [place] No Information Aug-2 4 [place] Joey. . Referring Provider: Eren Bojorquez, [address] [place] [address] 160, [place], [address]. tel:[phone] [facility], [address], [place], [place], [address], [place] tel:[phone] [place] No Information Aug-2 4 Silver Elvia. . Referring Provider: Eren Bojorquez, [address] [place] [address] 160, [place], [address]. tel:[phone] [facility], [address], [place], [place], [address], [place] tel:[phone] [place] No Information Aug-2 4 [place] Joey. . Referring Provider: Eren Bojorquez, [facility]0 [facility] [address], [place], [address]. tel:[phone] [facility], [address], [place], [place], [address], [place] tel:[phone] [place] No Information 4 Silver Elvia. . Referring Provider: Eren Bojorquez, [address] [place] [address] 160, [place], [address]. tel:[phone], [place], [place], [address], [place] tel:[phone] [place] No Information 4 Oh[place]orge Joey. . Referring Provider: Eren Bojorquez, [address] [place] [address] 160, [place], [address]. tel:[phone] [facility], [facility] [address], [place], [place], [address], [place] tel:[phone] [place] No Information 4 Silver Elvia. . Referring Provider: Eren Bojorquez, [address] [place] [address] 160, [place], [address]. tel:[phone] [facility], [facility] [address], [place], [place], [address], [place] tel:[phone] [place] No Information 4 [place] Joey. . Referring Provider: Eren Bojorquez, [address] [place] [address] 160, [place], [address]. tel:[phone] [facility], [address], [place], [place], [address], [place] tel:[phone] [place] No Information 4 Silver Elvia. . Referring Provider: Eren Bojorquez, [address] [place] [address] 160, [place], [address]. tel:[phone] [facility], [address], [place], [place], [id number], [place] tel:[phone] [place] No Information 4 Ohnesorge Joey. . Referring Provider: Eren Bojorquez, [address] [place] [address] [address], [place], [address]. tel:[phone] [facility], [address], [place], [place], [address], [place] tel:[phone] [place] No Information 4 Silver Elvia. . Referring Provider: Eren Bojorquez, [address] [place] [address] 160, [place], [address]. tel:[phone] [facility], [address] [facility] [address], [place], [place], [address], [place] tel:[phone] [place] No Information 4 Oh[place]orge Joey. . Referring Provider: Eren Bojorquez, [address] [place] [address] 160, [place], [address]. tel:[phone] [facility], [address], [place], [place], [address], [place] tel:[phone] [place] No Information 4 Silver Elvia. . Referring Provider: Eren Bojorquez, [address] [place] [address] 160, [place], [address]. tel:[phone] [facility], [address], [place], [place], [address], [place] tel:[phone] [place] No Information 4 Silver Elvia. . Referring Provider: Eren Bojorquez, [address] [place] [address] 160, [place], [address]. tel:[phone] [facility], [address], [place], [place], [address], [place] tel:[phone] [place] No Information 4 Ohnesorge Joey. . Referring Provider: Eren Bojorquez, [address] [facility] [address], [place], [address]. tel:[phone] [facility], [address], [place], [place], [address], [place] tel:[phone] [place] No Information 4 Silver Elvia. . Referring Provider: Eren Bojorquez, [address] [place] [address] 160, [place], [address]. tel:[phone] [facility], [address], [place], [place], [address], [place] tel:[phone] [place] No Information 4 Ohnesorge Joey. . Referring Provider: Eren Bojorquez, [address] [place] [address] 160, [place], [address]. tel:[phone] [facility], [facility] [address], [place], [place], [address], [place] tel:[phone] [place] No Information 4 Silver Elvia. . Referring Provider: Eren Bojorquez, [address] [place] [address] 160, [place], [address]. tel:[phone] [facility], [address], [place], [place], [address], [place] tel:[phone] [place] No Information 4 Ohnesorge Joey. . Referring Provider: Eren Bojorquez, [address] [place] [address] 160, [place], [address]. tel:[phone] [facility], [address], [place], [place], [address], [place] tel:[phone] [place] No Information 4 Silver Elvia. . Referring Provider: Eren Bojorquez, [address] [place] [address] 160, [place], [address]. tel:[phone] [facility], [address], [place], [place], [address], [place] tel:[phone] [place] No Information Dec-0 8-202 4 Ohnesorge Joey. . Referring Provider: Eren Bojorquez, [address] [place] [address] 160, [place], [address]. tel:[phone] [facility], [facility] [address], [place], [place], [address], [place] tel:[phone] [place] No Information Dec-0 8202 4 Silver Elvia. . Referring Provider: Eren Bojorquez, [address] [place] [address] 160, [place], [address]. tel:[phone], [place], [place], [address], [place] tel:[phone] [place] No Information Dec-0 3-202 4 Ohnesorge Joey. . Referring Provider: Eren Bojorquez, [address] [place] [address] 160, [place], [address]. tel:[phone] [facility], [facility] [address], [place], [place], [address], [place] tel:[phone] [place] No Information Dec-0 3202 4 Silver Elvia. . Referring Provider: Eren Bojorquez, [address] [place] [address] 160, [place], [address]. tel:[phone] [facility], [address] [place] [address] [address], [place], [place], [address], [place] tel:[phone] [place] No Information Dec-0 4 Ramila Avila. . Referring Provider: Eren Bojorquez, [address] [place] [address] 160, [place], [address]. tel:[phone] [facility], [address] [place] [address] [address], [place], [place], [address], [place] tel:[phone] [place] No Information Dec-0 1202 4 Silver Elvia. . Referring Provider: Eren Bojorquez, [address] [place] [address] 160, [place], [address]. tel:[phone] [place] [address]i, [address], [place], [place], [address], [place] tel:[phone] [place] No Information Carlos-2 4 4 Silver Elvia. . Referring Provider: Eren Bojorquez, [address] [place] [address] 160, [place], [address]. tel:[phone] [facility], [address], [place], [place], [address], [place] tel:[phone] [place] No Information Carlos-2 4 4 Klahn Austin. . Referring Provider: Eren Bojorquez, [address] [place] [address] 160, [place], [address]. tel:[phone] [facility], [address], [place], [place], [address], [place] tel:[phone] [place] No Information Nov-2 0 4 Taran Cook. . Referring Provider: Eren Bojorquez, [address] [place] [address] 160, [place], [address]. tel:[phone] [facility], [facility] [address], [place], [place], [address], [place] tel:[phone] [place] No Information Nov-2 0 4 Silver Elvia. . Referring Provider: Eren Bojorquez, [address] [place] [address] 160, [place], [address]. tel:[phone] [facility], [address], [place], [place], [address], [place] tel:[phone] [place] No Information Carlos-1 7 4 Silver Elvia. . Referring Provider: Eren Bojorquez, [address] [place] [address] 160, [place], [address]. tel:[phone] [facility], [address], [place], [place], [address], [place] tel:[phone] [place] No Information Carlos-1 3-202 4 Klahn Austin. . Referring Provider: Eren Bojorquez, [address] [place] [address] 160, [place], [address]. tel:[phone] [facility], [address] [place] [address] [address], [place], [place], [address], [place] tel:[phone] [place] No Information Carlos-1 3-202 4 Silver Elvia. . Referring Provider: Eren Bojorquez, [address] [place] [address] 160, [place], [address]. tel:[phone] [facility], [facility] [address], [place], [place], [address], [place] tel:[phone] [place] No Information Carlos-1 0-202 4 Taran Cook. . Referring Provider: Eren Bojorquez, [address] [place] [address] 160, [place], [address]. tel:[phone] [facility], [address] [place] [address] [address], [place], [place], [address], [place] tel:[phone] [place] No Information Carlos-1 0-202 4 Silver Elvia. . Referring Provider: Eren Bojorquez, [address] [place] [address] 160, [place], [address]. tel:[phone] [facility], [facility] [address], [place], [place], [address], [place] tel:[phone] [place] No Information Carlos-0 6-202 4 Silver Elvia. . Referring Provider: Eren Bojorquez, [address] [place] [address] 160, [place], [address]. tel:[phone] [facility], [address] [place] [address] [address], [place], [place], [address], [place] tel:[phone] [place] No Information Carlos-0 6-202 4 Ramila Avila. . Referring Provider: Eren Bojorquez, [address] [place] [address] 160, [place], [address]. tel:[phone] [facility], [address], [place], [place], [address], [place] tel:[phone] [place] No Information 4 Klahn Austin. . Referring Provider: Eren Bojorquez, [address] [place] [address] [address], [place], [address]. tel:[phone] [facility], [facility] [address], [place], [place], [address], [place] tel:[phone] [place] No Information 4 Silver Elvia. . Referring Provider: Eren Bojorquez, [address] [place] [address] 160, [place], [address]. tel:[phone] [facility], [facility] [address], [place], [place], [address], [place] tel:[phone] [place] No Information 4 Klahn Austin. . Referring Provider: Eren Bojorquez, [address] [place] [address] 160, [place], [address]. tel:[phone] [facility], [facility] [address], [place], [place], [address], [place] tel:[phone] [place] No Information 3 4 Silver Elvia. . Referring Provider: Eren Bojorquez, [address] [place] [address] 160, [place], [address]. tel:[phone] [facility], [facility] [address], [place], [place], [address], [place] tel:[phone] [place] No Information 4 Silver Elvia. . Referring Provider: Eren Bojorquez, [address] [place] [address] 160, [place], [address]. tel:[phone] [facility], [address] [place] [address] [address], [place], [place], [address], [place] tel:[phone] [place] No Information 4 Klstefanin Austin. . Referring Provider: Eren Bojorquez, [address] [place] [address] 160, [place], [address]. tel:[phone] [facility], [address], [place], [place], [address], [place] tel:[phone] [place] No Information - 4 Ohnesorge Joey. . Referring Provider: Eren Bojorquez, [address] [place] [address] 160, [place], [address]. tel:[phone] [facility] [address] [facility], [place], [place], [address], [place] tel:[phone] [place] No Information - 4 Silver Elvia. . Referring Provider: Eren Bojorquez, [address] [place] [address] 160, [place], [address]. tel:[phone] [facility], [address] [place], [place] [address], [place], [place], [address], [place] tel:[phone] [place] No Information 0- 4 Silver Elvia. . Referring Provider: Eren Bojorquez, [address] [place] [address] 160, [place], [address]. tel:[phone] [facility], [address] [place], [place] [address], [place], [place], [address], [place] tel:[phone] [place] No Information 0 4 Ohnesorge Joey. . Referring Provider: Eren Bojorquez, [address] [place] [address] 160, [place], [address]. tel:[phone] [facility] [address] [facility] [address], [place], [place], [address], [place] tel:[phone] [place] No Information 4 Silver Elvia. . Referring Provider: Eren Bojorquez, [address] [place] [address] 160, [place], [address]. tel:[phone] [facility], [address], [place], [place], [address], [place] tel:[phone] [place] No Information 4 Ohnesorge Joey. . Referring Provider: Eren Bojorquez, [address] [place] [address] [address], [place], [address]. tel:[phone], [place], [place], [address], [place] tel:[phone] [place] No Information May-1 3-202 4 Silver Elvia. . Referring Provider: Eren Bojorquez, [address] [place] [address] 160, [place], [address]. tel:[phone], [place], [place], [address], [place] tel:[phone] [place] No Information 3-202 4 [place]orge Joey. . Referring Provider: Eren Bojorquez, [address] [place] [address] 160, [place], [address]. tel:[phone] [facility], [address] [place] [address] [address], [place], [place], [address], [place] tel:[phone] [place] No Information May-1 0-202 4 Klahn Austin. . Referring Provider: Eren Bojorquez, [address] [place] [address] 160, [place], [address]. tel:[phone] [facility], [facility] [address], [place], [place], [address], [place] tel:[phone] [place] No Information May-1 0-202 4 Silver Elvia. . Referring Provider: Eren Bojorquez, [address] [place] [address] 160, [place], [address]. tel:[phone] [facility], [facility] [address], [place], [place], [address], [place] tel:[phone] [place] No Information May-0 7-202 4 Klahn Austin. . Referring Provider: Eren Bojorquez, [address] [place] [address] 160, [place], [address]. tel:[phone] [facility], [address], [place], [place], [address], [place] tel:[phone] [place] No Information May-0 7-202 4 Silver Elvia. . Referring Provider: Eren Bojorquez, [address] [place] [address] 160, [place], [address]. tel:[phone] [facility], [facility] [address], [place], [place], [address], [place] tel:[phone] [place] No Information May-0 3-202 4 Klstefanin Austin. . Referring Provider: Eren Bojorquez, [address] [place] [address] 160, [place], [address]. tel:[phone] [facility], [facility] [address], [place], [place], [address], [place] tel:[phone] [place] No Information May-0 3- 4 Silver Elvia. . Referring Provider: Eren Bojorquez, [address] [place] [address] 160, [place], [address]. tel:[phone] [facility], [address], [place], [place], [address], [place] tel:[phone] [place] No Information Apr-2 4 Ramila Avila. . Referring Provider: Eren Bojorquez, [address] [place] [address] 160, [place], [address]. tel:[phone] [facility], [facility] [address], [place], [place], [address], [place] tel:[phone] [place] No Information Apr-2 4 Silver Elvia. . Referring Provider: Eren Bojorquez, [address] [place] [address] 160, [place], [address]. tel:[phone] [facility] [address], [place], [place], [address], [place] tel:[phone] [place] No Information Apr-2 6 4 Ramila Avila. . Referring Provider: Eren Bojorquez, [address] [place] [address] 160, [place], [address]. tel:[phone] [facility], [address], [place], [place], [address], [place] tel:[phone] [place] No Information Apr-2 6- 4 Silver Elvia. . Referring Provider: Eren Bojorquez, [address] [place] [address] [address], [place], [address]. tel:[phone] [facility], [address], [place], [place], [address], [place] tel:[phone] [place] No Information Apr-2 2- 4 Klstefanin Austin. . Referring Provider: Eren Bojorquez, [address] [place] [address] 160, [place], [address]. tel:[phone] [facility], [address], [place], [place], [address], [place] tel:[phone] [place] No Information Apr-2 - 4 Silver Elvia. . Referring Provider: Eren Bojorquez, [address] [place] [address] 160, [place], [address]. tel:[phone] [facility], [address], [place], [place], [address], [place] tel:[phone] [place] No Information Apr-1 - 4 Michin Austin. . Referring Provider: Eren Bojorquez, [address] [place] [address] 160, [place], [address]. tel:[phone] [facility], [address], [place], [place], [address], [place] tel:[phone] [place] No Information Apr-1 - 4 Silver Elvai. . Referring Provider: Eren Bojorquez, [address] [place] [address] 160, [place], [address]. tel:[phone] [facility], [address], [place], [place], [address], [place] tel:[phone] [place] No Information Apr-0 2-202 4 Silver Elvia. . Referring Provider: Eren Bojorquez, [facility] [address], [place], [address]. tel:[phone] [facility], [address] [place] [address] [address], [place], [place], [address], [place] tel:[phone] [place] No Information Apr-0 2-202 4 Modglin Juan. . Referring Provider: Eren Bojorquez, [address] [place] [address] 160, [place], [address]. tel:[phone] [facility], [address] [place] [address] [address], [place], [place], [address], [place] tel:[phone] [place] No Information Mar-2 4 Ramila Avila. . Referring Provider: Eren Bojorquez, [address] [place] [address] 160, [place], [address]. tel:[phone] [facility], [address] [place] [address] [address], [place], [place], [address], [place] tel:[phone] [place] No Information Mar-2 9- 4 Nadeem Gan. . Referring Provider: Eren Bojorquez, [address] [place] [address] 160, [place], [address]. tel:[phone] [facility], [address] [place], [place] [address], [place], [place], [address], [place] tel:[phone] [place] No Information Mar-1 3-202 0 Jenae Hart. . Referring Provider: Arabella España, [address] [place] [address] 160, [place], [address]. tel:[phone] [facility], [address] [place] [address] [address], [place], [place], [address], [place] tel:[phone] [place] No Information Mar-1 0-202 0 Jenae Ramirezke. . Referring Provider: Arabella España, [address] [place] [address] 160, [place], [address]. tel:[phone] [facility], [facility] [address], [place], [place], [address], [place] tel:[phone] [place] No Information Mar-0 6-202 0 Junito Miramontes [place]. Referring Provider: Arabella España, [address] [facility] [address], [place], [address]. tel:[phone] [facility], [address], [place], [place], [address], tel:[phone] [place] No Information Mar-0 3-202 0 Junito Miramontes [place], [place]. Referring Provider: Arabella España, [address] [facility] [address], [place], [address]. tel:[phone] Family History Family Member Type Diagnosis Age At Onset No Information Payers Payer name Insurance type Covered libertarian ID Authortheresaa bessy(s) Medicare [place] [id number] [facility] [id number] Social History Type Description Quantity Date Captured Comments Sex Male Smoking Status No Information Chief Complaint And Reason For Visit No Information Reason For Referral Reason For Referral No Information Plan Of Treatment Date Type Action Status Referral Ordered: Depression: Depression management program timeframe: 1 Day. (related to Depression) ordered Referral Ordered: Referrals: Specialist. Evaluate and Treat (related to Adjustment disorder with depressed mood) ordered Referral Ordered: Referrals: Specialist. Evaluate and Treat (related to Adjustment disorder with depressed mood) ordered Referral Ordered: Referrals: Specialist. Evaluate and Treat (related to Adjustment disorder with depressed mood) ordered Referral Ordered: Clinical Psychology (related to Depression) ordered Referral Ordered: Depression: Depression management program timeframe: 1 Day. (related to Depression) ordered Referral Ordered: Clinical Psychology (related to Depression) ordered Referral Ordered: Clinical Psychology (related to Depression) ordered Referral Ordered: Depression: Depression management program timeframe: 1 Day. (related to Depression) ordered Referral Ordered: Referrals: Specialist. Evaluate and Treat (related to Adjustment disorder with depressed mood) ordered Referral Ordered: Referrals: Specialist. Evaluate and Treat (related to F43.21) ordered Referral Ordered: Clinical Psychology (related to Depression) ordered History Of Present Illness Encounter Date Complaint History Of Prese nt Illness No Information Functional Status Date Functional Assessmen t No Information Instructions Date Instruction Additional Infor jeannie Giving encouragement to exercise Related to Overweight Assessments Type Assessment Date No Information Patient Care Teams Name Effective Dates (start - stop) Status Members No Information
[2025-01-25 00:01] LABS: Alanine Aminotransferase 48 U/L (6-50); Albumin Level 3.8 g/dL (3.5-5.1); Alkaline Phosphatase 100 U/L (38-126); Anion Gap 6 mmol/L (4-12); Aspartate Amino Transferase 41 U/L (17-59); Bilirubin,Total 1.0 mg/dL (0.2-1.3); Blood Urea Nitrogen 24 mg/dL (9-20); Calcium 9.4 mg/dL (8.4-10.2); Carbon Dioxide 29 mmol/L (22-30); Chloride 100 mmol/L (98-107); Estimated CRCL calculation 55 ml/min; Estimated Glomerular Filt Rate > 60; Glucose 102 mg/dL (65-110); Potassium 3.9 mmol/L (3.4-5.0); Sodium 135 mmol/L (137-145); Total Protein 6.7 g/dL (6.3-8.2)
[2025-01-25] MEDS: IPRATROPIUM 0.5 MG/ALBUTEROL SULFATE 2.5 MG AMPUL.NEB 3 ML INHALATION ×2 (00:07→01:16)
[2025-01-25 00:10] VITALS: PULSE 60; RESP 14
[2025-01-25 00:20] VITALS: PULSE 80; RESP 18
[2025-01-25 00:53] VITALS: BP 127/55; PULSE 84; RESP 16; O2SAT 98
[2025-01-25 00:58] LABS: Add Urine Microscopic? YES; Appearance Urine Clear (Clear); Glucose Urine UA Negative (Negative); Leukocyte Esterase Ur Negative LEU/UL (Negative); Nitrate Urine Negative (Negative); Non Pathogenic Casts 0-2; Specific Grav Ur 1.022 (1.001-1.035)
--- NOTE | 2025-01-25 01:13 | ED_ITS ---
HPI - General Adult General Chief complaint: Unspecified Stated complaint: spit up clear liquid Time Seen by Provider: 01/24/25 23:13 History of Present Illness HPI narrative: Patient had taken his medication and was getting ready for bed when he started having a choking/coughing spell, a ton of phlegm was coming out of his mouth, he still felt like there was something stuck in his throat, felt like it was draining down his throat and he was trying to cough it out. Still having little bit of sensation of something in his throat currently. Review of Systems 2 Review of Systems: All systems reviewed & are unremarkable except as noted in HPI and below Exam 2 Narrative: EXAMINATION OF ORGAN SYSTEMS/BODY AREAS: Constitutional: Vital signs per nursing GENERAL:[No acute distress, non-toxic appearing.] HEAD: Normal with no signs of head trauma. EYES: EOMI, conjunctiva normal ENT: Hearing grossly intact, normal voice, nothing visualized oropharynx, no swelling LUNGS: Nonlabored breathing. Some diminished breath sounds right lung HEART: [Regular rate and rhythm] ABD: [Soft], [nontender to palpation] EXT: Normal range of motion SKIN: [No rashes or lesions.] NEURO: [Alert and oriented x 3. No gross focal sensory or strength deficits.] PSYCH: Normal affect Course Vital Signs Vital signs: Vital Signs Temperature 98.3 F 01/24/25 22:56 Pulse Rate 52 L 01/24/25 22:56 Respiratory Rate 17 01/24/25 22:56 Blood Pressure 109/63 01/24/25 22:56 Pulse Oximetry 97 01/24/25 22:56 Oxygen Delivery Room Air 01/24/25 22:56 Temperature 98.3 F 01/24/25 22:56 Pulse Rate 84 01/25/25 01:40 Respiratory Rate 20 01/25/25 01:40 Blood Pressure 104/57 L 01/25/25 01:40 Pulse Oximetry 100 01/25/25 01:40 Oxygen Delivery Room Air 01/24/25 22:56 Medical Decision Making [facility] Narrative Medical decision making narrative: Patient presents here with episode of choking/coughing, he still has a sensation of something dripping down his throat. On exam well-appearing, no obvious foreign object visualized in oropharynx, normal voice, some diminished breath sounds right lower lung. Chest x-ray on my my independent interpretation there do seem to be some opacities in the right lung banks, in context with history, I suspect some aspiration. Patient asked about trying some DuoNebs, this is ordered and on re-evaluation, he does look and feel and sound much better Given his age and risk factors, I did opt for some antibiotics, steroids, and refilled his nebulizer solution, he likely has an appointment with his electronic development technician in the next few days, he and family are agreeable to outpatient management with strict return precautions Vital Signs Vital Signs: Vital Signs Temperature 98.3 F 01/24/25 22:56 Pulse Rate 52 L 01/24/25 22:56 Respiratory Rate 17 01/24/25 22:56 Blood Pressure 109/63 01/24/25 22:56 Pulse Oximetry 97 01/24/25 22:56 Oxygen Delivery Room Air 01/24/25 22:56 Temperature 98.3 F 01/24/25 22:56 Pulse Rate 84 01/25/25 01:40 Respiratory Rate 20 01/25/25 01:40 Blood Pressure 104/57 L 01/25/25 01:40 Pulse Oximetry 100 01/25/25 01:40 Oxygen Delivery Room Air 01/24/25 22:56 Lab Data 01/24/25 23:13 01/24/25 23:13 Labs: Lab Results 01/24/25 Range/Units 23:13 WBC 5.2 (4.5-10.0) K/mm3 RBC 4.25 L (4.6-6.20) M/mm3 Hgb 12.9 L (14.0-18.0) g/dL Hct 39.3 L (42.0-52.0) % MCV 92.5 (80-100) fl MCH 30.4 (26-34) pg MCHC 32.8 (32-36) g/dl RDW 13.6 (11.5-14.5) % Plt Count 192 (150-375) k/mm3 MPV 8.7 (7.4-10.4) fl Immature Gran % (Auto) 0.2 (0-0.5) % Neut % (Auto) 57.3 (45.5-73.1) % Lymph % (Auto) 27.1 (18.3-44.2) % [place] % (Auto) 13.1 H (2.6-8.5) % Eos % (Auto) 1.5 (0-4.4) % Baso % (Auto) 0.8 (0.2-1.2) % Lymph # (Auto) 1.41 (0.9-3.2) K/mm3 [place] # (Auto) 0.7 H (0.1-0.6) K/mm3 Eos # (Auto) 0.1 (0-0.3) K/mm3 Baso # (Auto) 0.0 (0.0-0.1) K/mm3 Abs Immat Gran (auto) 0.01 (0.00-0.031) K/mm3 Absolute Neuts (auto) 3.0 (1.3-6.7) K/mm3 Absolute Nucleated RBC 0.000 (0.0-0.012) K/mm3 Nucleated RBC % 0.0 (0.0-0.2) % Sodium 135 L (137-145) mmol/L Potassium 3.9 (3.4-5.0) mmol/L Chloride 100 (98-107) mmol/L Carbon Dioxide 29 (22-30) mmol/L Anion Gap 6 (4-12) mmol/L BUN 24 H (9-20) mg/dL Creatinine 0.97 (0.7-1.3) mg/dL Estim Creat Clear Calc 55 ml/min Estimated GFR > 60 (59 - ) Glucose 102 (65-110) mg/dL Calcium 9.4 (8.4-10.2) mg/dL Total Bilirubin 1.0 (0.2-1.3) mg/dL AST 41 (17-59) U/L ALT 48 (6-50) U/L Alkaline Phosphatase 100 (38-126) U/L Total Protein 6.7 (6.3-8.2) g/dL Albumin 3.8 (3.5-5.1) g/dL Urine Color Yellow (Yellow) Urine Appearance Clear (Clear) Urine pH 6.0 (5.0-9.0) Ur Specific [place] 1.022 (1.001-1.035) Urine Protein Trace (Negative) mg/dL Urine Glucose (UA) Negative (Negative) mg/dL Urine Ketones Negative (Negative) mg/dL Ur Blood (Man) Negative (Negative) Urine Nitrate Negative (Negative) Urine Bilirubin Negative (Negative) Urine Urobilinogen 1.0 (<2.0) mg/dL Leukocyte Esterase Rfl Negative (Negative) KODY/UL Urine RBC 0-2 (0-2) /hpf Urine WBC 0-5 (0-3) /hpf Ur Squamous Epith Cells None seen (Few) /hpf Urine Bacteria None seen /hpf Urine Casts 0-2 Discharge Plan Discharge Clinical Impression: Aspiration into respiratory tract Patient Disposition: Home Condition: Stable Instructions: Antibiotic Form, Aspiration Pneumonia (DC) Additional Instructions: Please follow up with your doctor/electronic development technician as scheduled; take the medications as prescribed. You can always return for any further issues. Patient Language: Guamanian Prescriptions: New prednisone 20 mg tablet 40 mg PO DAILY 5 Days Qty: 10 0RF azithromycin 250 mg tablet See Rx Instructions .ROUTE .COMPLEX Qty: 6 0RF Rx Instructions: For 250 mg dose pack: take 500 mg today (day 1), then 250 mg for 4 days (days 2-5) ipratropium-albuterol 0.5 mg-3 mg(2.5 mg base)/3 mL solution for nebulization 3 ml inhalation Q6H PRN (Reason: shortness of breath or wheezing) Qty: 90 0RF Follow-up/Referrals: Maryellen,Eren Garza MD [Primary Care Provider] -
[2025-01-25 01:16] VITALS: PULSE 76; RESP 17
[2025-01-25 01:25] VITALS: PULSE 75; RESP 18
[2025-01-25 01:40] VITALS: BP 104/57; PULSE 84; RESP 20; O2SAT 100
== END 2025-01-25 01:45 | disposition home or self-care (01) ==
PROVIDERS: Emergency Provider Emergency Medicine; PCP Family Medicine
DX: T17.990A Other foreign object in respiratory tract, part unspecified in causing asphyxiation, initial encounter (principal); W44.F9XA Other object of natural or organic material, entering into or through a natural orifice, initial encounter
CPT/HCPCS: 36415; 71045; 80053; 81001; 85025; 93005; 94640; 99284